=== PATIENT | female | born 1940 | race Caucasian/White ===

== ENCOUNTER 2016-10-07 09:04 | Emergency (ER) | payer MEDICARE ==
--- NOTE | 2016-10-07 09:21 | ED ---
General Adult HPI - General Chief complaint: Fall Stated complaint: trip and Fall Time Seen by Provider: 10/07/16 09:13 Source: patient, RN notes reviewed Mode of arrival: EMS Limitations: no limitations - History of Present Illness Initial comments: Patient is a 76-year-old female who presents by EMS, with chief complaint of a trip and fall that occurred just prior to arrival. She states she was walking along the sidewalk when a small piece of sidewalk was raised up caused her to trip falling down onto the left shoulder. She believes it was talked into her body. She does admit to small abrasion on her chin. Patient denies any other head injury or loss conscious. She states she's not on any blood thinners. She rates pain to the left shoulder area that is worse with any movements. Patient denies any other injuries or complaints at this time. Patient denies any recent fever, chills, shortness of breath, chest pain, back pain, abdominal pain, nausea or vomiting, numbness or tingling, dysuria or hematuria, constipation or diarrhea, headaches or visual changes, or any other complaints. - Related Data Home Medications Medication Instructions Recorded Confirmed Calcium Carbonate [Calcium] 600 mg PO DAILY 10/07/16 10/07/16 Cholecalciferol [Vitamin D3] 1,000 unit PO DAILY 10/07/16 10/07/16 Echinacea 500 mg PO DAILY 10/07/16 10/07/16 Hydrochlorothiazide [Hydrodiuril] 25 mg PO DAILY 10/07/16 10/07/16 Levothyroxine Sodium [Synthroid] 75 mcg PO DAILY 10/07/16 10/07/16 Multivitamins, Thera [Multivitamin 1 tab PO DAILY 10/07/16 10/07/16 (formulary)] [place]-3 Fatty Acids/Fish Oil [Fish 1 cap PO DAILY 10/07/16 10/07/16 Oil 1,000 mg Softgel] Potassium Chloride ER [K-Dur 10] 10 meq PO DAILY 10/07/16 10/07/16 Turmeric Root Extract [Turmeric] 500 mg PO DAILY 10/07/16 10/07/16 Previous Rx's Medication Instructions Recorded Hydrocodone/Acetaminophen [[place] 1 each PO Q6HR PRN #20 tab 10/07/16 5-325] Allergies Allergy/AdvReac Type Severity Reaction Status Date / Time No Known Allergies Allergy Verified 10/07/16 09:57 Review of Systems ROS Statement: Those systems with pertinent positive or pertinent negative responses have been documented in the HPI. ROS Other: All systems not noted in ROS Statement are negative. Past Medical History Past Medical History: Hypertension, Thyroid Disorder History of Any Multi-Drug Resistant Organisms: None Reported Additional Past Surgical History / Comment(s): carpal tunnel release Past Psychological History: No Psychological Hx Reported Smoking Status: Never smoker Past Alcohol Use History: None Reported Past Drug Use History: None Reported General Exam - General Exam Comments Initial Comments: General: The patient is awake and alert, in no distress, and does not appear acutely ill. Eye: Pupils are equal, round and reactive to light, extra-ocular movements are intact. No nystagmus. There is normal conjunctiva bilaterally. No signs of icterus. Ears, nose, mouth and throat: There are moist mucous membranes and no oral lesions. Neck: The neck is supple, there is no tenderness or JVD. Cardiovascular: There is a regular rate and rhythm. No murmur, rub or gallop is appreciated. Respiratory: Lungs are clear to auscultation, respirations are non-labored, breath sounds are equal. No wheezes, stridor, rales, or rhonchi. Musculoskeletal: Patient shows decreased range of motion to the left shoulder due to pain. No obvious deformity. Mild tenderness over the anterior aspect of the left shoulder. Sensations intact in all areas. Able to fully move left wrist left elbow no difficulties. No bony tenderness in these areas. No tenderness of cervical spine has full range of motion of this area. Tenderness over the clavicle. Strength 5/5 in all other areas other than left shoulder. Sensation intact. Pulses equal bilaterally 2+. Neurological: A&O x 3. CN II-XII intact, There are no obvious motor or sensory deficits. Coordination appears grossly intact. Speech is normal. Skin: Skin is warm and dry and no rashes or lesions are noted. Psychiatric: Cooperative, appropriate mood & affect, normal judgment. Limitations: no limitations Course Vital Signs 10/07/16 09:11 Temperature 97.4 F L Pulse Rate 60 Respiratory 18 Rate Blood Pressure 153/72 O2 Sat by Pulse 98 Oximetry Medical Decision Making - Medical Decision Making Patient's x-ray reviewed does show a fracture through the greater tubercle of the left shoulder area going through part of the joint space. Case discussed with orthopedics on-call physician client account assistant Nura Hernandez. At this time they recommended CT of the shoulder being discharged home to follow-up with orthopedics in the office with a shoulder sling. Patient will be discharged home pain medication. Advised return for any other concerns. Disposition Clinical Impression: Humerus fracture Disposition: HOME SELF-CARE Condition: Good Instructions: Arm Fracture in Adults (ED) Additional Instructions: Please use shoulder sling and follow-up with orthopedics in the next 1-2 days. Please use pain medication as prescribed. Please to the emergency room or any other concerns. Prescriptions: Hydrocodone/Acetaminophen [[place] 5-325] 1 each PO Q6HR PRN #20 tab PRN Reason: Pain Referrals: Porter Dudley DO [Primary Care Provider] - 1-2 days Reinaldo Lopez MD [STAFF PHYSICIAN] - 1-2 days Time of Disposition: 10:52
[2016-10-07] MEDS ORDERED: HYDROcodone/APAP 5-325MG 1 EACH TAB PO STA (09:39)
--- NOTE | 2016-10-07 09:57 | XR ---
Left shoulder HISTORY: Trauma and pain 3 views of the left shoulder No comparisons Displaced fracture at the greater tuberosity of the proximal left humerus is present, there is associ ated subluxation suspected as noted on one of the 3 views. Left lung apex as visualized is normal. IMPRESSION: Possible subluxation with fracture of the proximal left humerus
[2016-10-07 11:10] VITALS: BP 188/88; PULSE 69; RESP 16; TEMP 98
--- NOTE | 2016-10-07 11:17 | CT ---
EXAMINATION TYPE: CT shoulder LT wo con DATE OF EXAM: 10/07/2016 10:51 AM COMPARISON: Left shoulder same date HISTORY: Fall, Lt humerus fx CT DLP: 416 mGycm Automated exposure control for dose reduction was used. Helical imaging through the left shoulder. Th ree-dimensional reconstructions performed on an alternate workstation. FINDINGS: The comminuted proximal humeral fracture with displacement of the greater tuberosity is noted which e xtends into the metadiaphyseal location. There is no dislocation evident. Coronary artery calcifications are present. Left lung apex as visualized is normal. IMPRESSION: COMMINUTED PROXIMAL LEFT HUMERAL FRACTURE.
== END 2016-10-07 11:10 | disposition home or self-care (01) ==
LOC: EC 09:04
DX: S42.251A Displaced fracture of greater tuberosity of right humerus, initial encounter for closed fracture (principal); E07.9 Disorder of thyroid, unspecified; Z79.899 Other long term (current) drug therapy; W01.0XXA Fall on same level from slipping, tripping and stumbling without subsequent striking against object, initial encounter; Y93.01 Activity, walking, marching and hiking; Y92.480 Sidewalk as the place of occurrence of the external cause
CPT/HCPCS: 99284

== ENCOUNTER → 2016-10-09 | Outpatient (CLI) | payer MEDICARE ==
--- NOTE | 2016-10-09 12:33 | ECHOF ---
Referral Reason:N MEASUREMENTS -------- HEIGHT: 162.6 cm WEIGHT: 70.3 kg BP: 148/84 RVIDd: 2.5 cm (< 3.3) IVSd: 1.1 cm (0.6 - 1.1) LVIDd: 3.9 cm (3.9 - 5.3) LVPWd: 1.0 cm (0.6 - 1.1) IVSs: 1.6 cm LVIDs: 2.5 cm LVPWs: 1.6 cm LA Diam: 2.8 cm (2.7 - 3.8) LAESV Index (A-L): 18.94 ml/m Ao Diam: 3.3 cm (2.0 - 3.7) AV Cusp: 1.9 cm (1.5 - 2.6) MV EXCURSION: 12.842 mm (> 18.000) MV EF SLOPE: 34 mm/s (70 - 150) EPSS: 0.5 cm MV E Carmine: 0.71 m/s MV DecT: 205 ms MV A Carmine: 0.87 m/s MV E/A Ratio: 0.81 FINDINGS -------- Sinus rhythm. This was a technically adequate study. The left ventricular size is normal. There is borderline concentric left ventricular hypertrophy. Overall left ventricular systolic function is normal with, an EF between 60 - 65 %. The right ventricle is normal in size and function. Normal LA size by volume 22+/-6 ml/m2. The right atrium is normal in size. The aortic valve was not well visualized. The mitral valve leaflets are mildly thickened. Mild mitral annular calcification present. The tricuspid valve appears structurally normal. The pulmonic valve was not well visualized. The aortic root size is normal. Normal inferior vena cava with normal inspiratory collapse consistent with estimated right atrial pressure of 5 mmHg. There is no pericardial effusion. CONCLUSIONS -------- 1. Sinus rhythm. 2. The mitral valve leaflets are mildly thickened. 3. Mild mitral annular calcification present. 4. The tricuspid valve appears structurally normal. 5. The pulmonic valve was not well visualized. 6. The aortic root size is normal. 7. Normal inferior vena cava with normal inspiratory collapse consistent with estimated right atrial pressure of 5 mmHg. 8. There is no pericardial effusion. 9. This was a technically adequate study. 10. The left ventricular size is normal. 11. There is borderline concentric left ventricular hypertrophy. 12. Overall left ventricular systolic function is normal with, an EF between 60 - 65 %. 13. The right ventricle is normal in size and function. 14. Normal LA size by volume 22+/-6 ml/m2. 15. The right atrium is normal in size. 16. The aortic valve was not well visualized. TRAVELING AUDITOR: Eloisa Lemus RDCS
== END | disposition home or self-care (01) ==
LOC: RADECHMAIN 09:34
PROVIDERS: ATTEND Family Medicine
DX: Z01.810 Encounter for preprocedural cardiovascular examination (principal); I05.8 Other rheumatic mitral valve diseases
CPT/HCPCS: 93306

== ENCOUNTER 2016-10-10 13:55 | Day surgery (SDC) | payer MEDICARE ==
[~2016-10-10 13:55] MED LIST: ACETAMINOPHEN TAB 500 MG TAB PO ONE; MELOXICAM 7.5 MG TAB PO ONE; ONDANSETRON 4 MG/2 ML VIAL IVP ONE; TRANEXAMIC ACID 1,000 MG in SODIUM CHLORIDE 0.9% 100 ML IVPB ONE; ceFAZolin 2 GM in SODIUM CHLORIDE 0.9% 100 ML IVPB ONE
[2016-10-10] MEDS ORDERED: ONDANSETRON 4 MG/2 ML VIAL IVP ONE ×2 (14:18→18:04)
[2016-10-10] MEDS ORDERED: LACTATED RINGERS 1,000 ML IV ONE ×2 (14:18→17:12)
[2016-10-10] MEDS ORDERED: DEXAMETHASONE SOD PHOSPHATE 10 MG/ML 1 ML VIAL IV ONE (14:19)
[2016-10-10] MEDS ORDERED: MIDAZOLAM 2 MG/2 ML VIAL IVP ONE (15:11)
[2016-10-10] MEDS ORDERED: ePHEDrine 50 MG/ML 1 ML AMP ONE (15:25)
[2016-10-10] MEDS ORDERED: SUCCINYLCHOLINE CHLORIDE 100 MG/5 ML SYR IV ONE (15:25)
[2016-10-10] MEDS ORDERED: HYDROmorphone (PF) 1 MG/ML ONE (15:25)
[2016-10-10] MEDS ORDERED: GLYCOPYRROLATE 0.2 MG/ML 2 ML VIAL ONE (15:25)
[2016-10-10] MEDS ORDERED: NEOSTIGMINE 1 MG/ML 10 ML VIAL ONE (15:25)
[2016-10-10] MEDS ORDERED: fentaNYL (PF) 50 MCG/ML 2 ML AMP ONE (15:25)
[2016-10-10] MEDS ORDERED: PROPOFOL 10 MG/ML 20 ML VIAL IV ONE (15:25)
[2016-10-10] MEDS ORDERED: LIDOCAINE 1% INJ 10MG/ML (20 ML MDV) ONE (15:25)
[2016-10-10] MEDS ORDERED: ROCURONIUM BROMIDE 10 MG/ML 10 ML VIAL IV ONE (15:25)
[2016-10-10] MEDS ORDERED: PROCHLORPERAZINE SUPPOSITORY 25 MG SUPP RECTAL PRN (15:52)
[2016-10-10] MEDS ORDERED: METOCLOPRAMIDE 5 MG/ML 2 ML VIAL IVP PRN (15:52)
[2016-10-10] MEDS ORDERED: hydrOXYzine PAMOATE 25 MG CAP PO PRN (15:52)
[2016-10-10] MEDS ORDERED: SENNOSIDES-DOCUSATE SODIUM 1 EACH TAB PO PRN (15:52)
[2016-10-10] MEDS ORDERED: ONDANSETRON 4 MG/2 ML VIAL IVP PRN (15:52)
[2016-10-10] MEDS ORDERED: diphenhydrAMINE 25 MG CAP PO PRN (15:52)
[2016-10-10] MEDS ORDERED: TEMAZEPAM 15 MG CAP PO PRN (15:52)
[2016-10-10] MEDS ORDERED: HYDROmorphone 1 MG/ML 1 ML SYRINGE IVP PRN ×3 (15:52)
[2016-10-10] MEDS ORDERED: HYDROcodone/APAP 5-325MG 1 EACH TAB PO PRN ×2 (15:52)
[2016-10-10] MEDS: ceFAZolin 2 GM in SODIUM CHLORIDE 0.9% 100 ML IVPB SCH ×2 (16:03→23:57)
[2016-10-10 18:20] VITALS: RESP 16
--- NOTE | 2016-10-10 18:25 | XR ---
EXAMINATION TYPE: XR shoulder limited LT DATE OF EXAM: 10/10/2016 5:58 PM COMPARISON: 10/07/2016 HISTORY: Fracture TECHNIQUE: Single view FINDINGS: There is a plate with screws fixing the humeral neck fracture in reasonable anatomic positi on. There is no dislocation. IMPRESSION: Satisfactory fixation. I see no complicating process.
--- NOTE | 2016-10-10 18:45 | P.ONQ ---
Anesthesiology Proc Note - PNB - Peripheral Nerve Block Performed Left Infraclavicular Single Time Out Performed: Yes Indication: Acute Post-Operative Pain, Requested by physician Sedation Type: Awake Preparation: Sterile Prep Position: Supine Needle Size: 50mm (2") Needle Gauge: 21 Technique: Ultrasound Injectate: 0.5% Ropivacaine (see comment for volume) (ropi .5% 20cc) Blood Aspirated: No Pain Paresthesia on Injection Noted: No Resistance on Injection: Normal Events: Uneventful and Well Tolerated
[2016-10-10 19:58] VITALS: BMI 3853.4
[2016-10-10] MEDS: DOXYCYCLINE 50 MG CAP PO SCH (23:57)
[2016-10-11] MEDS: LACTATED RINGERS 1,000 ML IV SCH ×2 (07:15→13:24)
[2016-10-11 07:19] VITALS: BP 178/85; PULSE 97; TEMP 98.1
[2016-10-11 07:39] LABS: Basophils % (A) 0 %; CHCM 35.6; Eosinophils # (A) 0.1 k/uL (0-0.7); Eosinophils % (A) 0 %; HCT 33.3 % (34.0-46.0); HDW 2.49; HGB 11.8 gm/dL (11.4-16.0); Luc % (Auto) 2; Lymphocytes # (A) 1.8 k/uL (1.0-4.8); Lymphocytes % (A) 16 %; MCH 30.1 pg (25.0-35.0); MCHC 35.5 g/dL (31.0-37.0); MCV 84.7 fL (80.0-100.0); Mean Platelet Volume 9.1; Monocytes # (A) 0.7 k/uL (0-1.0); Monocytes % (A) 6 %; Neutrophils # (A) 8.1 k/uL (1.3-7.7); Neutrophils % (A) 75 %; RBC 3.93 m/uL (3.80-5.40); RDW 13.2 % (11.5-15.5); WBC 10.8 k/uL (3.8-10.6); WBC (Perox) 10.89
--- NOTE | 2016-10-11 08:24 | XR ---
FLUOROSCOPY 34 seconds of fluoroscopy time were utilized during internal fixation of the left shoulder. 2 images document the procedure.
--- NOTE | 2016-10-11 08:57 | OP ---
DATE OF SERVICE: 10/10/2016 SURGEON: CARLOS ENRIQUE ELAINE MD BOOKKEEPING MANAGER: Nura Hernandez PA-C PREOPERATIVE DIAGNOSIS: Left displaced three-part proximal humerus fracture. POSTOPERATIVE DIAGNOSIS: Left displaced three-part proximal humerus fracture. OPERATION: Open reduction internal fixation left proximal humerus fracture. ANESTHESIA: General endotracheal. ESTIMATED BLOOD LOSS: 250 mL. SPECIMENS REMOVED: COMPLICATIONS: DRAINS: None. DISPOSITION: Postanesthesia care unit. OPERATIVE FINDINGS: INDICATIONS: Diamond is a very pleasant female who fell and injured her shoulder on the morning of 10/07/2016. She presented to the emergency department. Work-up including x-rays and CT scan revealed a displaced three-part proximal humerus fracture. She was given a sling and she had follow-up in my office. I saw her on Friday10/08/2016 in the office. She is a very active lady. She is left-hand dominant. She is a very healthy. This is her first fracture. She did have a displaced three-part proximal humerus fracture. Recommendation was for open reduction internal fixation of her left proximal humerus fracture. The risks of the procedure were discussed with her and her daughter in detail. These risks include, but are not limited to risk of infection, nerve damage, bleeding, pain, and a small risk of deep vein thrombosis, which could lead to fatal pulmonary embolism. There is also a risk of deep infection as well as a potential avascular necrosis of the humeral head. All of her questions and her daughter's questions were answered to her satisfaction. Appropriate informed consent was obtained. DESCRIPTION OF THE PROCEDURE: The patient was identified in the preoperative holding area. Surgical site was marked by both the patient and myself. She was given 2 grams of Ancef IV for prophylactic purposes. She was then transferred to the operative suite where she was placed supine on the operating room table. General anesthetic was then administered and dosed by the anesthesia department without apparent complication. She was then placed into the beach chair position, well padded in preparation for surgery. Great care was taken to ensure that her so that her cervical spine was in neutral alignment, well-padded and maintained that way throughout the operative procedure. Great care was also taken to ensure that her legs were appropriately padded as well. Her left upper extremity was then prepped and draped usual sterile fashion. Standard surgical pause was then undertaken to ensure that we were operating on the correct site and that appropriate preoperative antibiotics had been given. All staff in the room were in agreement and we proceeded. The acromion, AC joint, clavicle, and coracoid were marked with a surgical pen. A planned incision starting at the level of clavicle and extending distally over the deltopectoral interval approximately 1 cm lateral to the coracoid was marked with a surgical pen. Incision was then made with 10 blade scalpel. Dissection was carried down sharply to the overlying fat to the deltoid fascia. The deltopectoral interval was identified at the level of clavicle. A small band retractor was then placed onto the proximal deltoid. I then released the deltoid fascia on the lateral aspect of the cephalic vein. The vein was then left in its bed medially. The cephalic vein was protected throughout the entire case. Significant fracture hematoma was encountered. This was evacuated. She had hemorrhagic subdeltoid bursa which is also debrided. She had valgus impacted humeral head fragment as well as a significantly displaced large greater tuberosity fragment. I then was able to utilize a Sandy to grab the greater tuberosity fragment bring it anteriorly. I was then able to place 2 separate 0 Vicryl stay sutures within the posterior rotator cuff. This gave me good control over the greater tuberosity fragment. I then utilized a bone tamp to tamp the humeral head out of valgus and back into appropriate amount of alignment. I was then able to talk to the greater tuberosity and reduce it as anatomically as possible. There was some comminution around the proximal aspect of the greater tuberosity fragment. I was able to vicente the cortex anteriorly and distally, however. I then provisionally pinned the reduction and brought the C-arm fluoroscopy in. The head had been reduced out of valgus into a more appropriate alignment. The greater tuberosity had been reduced. I then had the ambulatory services representative open a Synthes 3.5 mm left proximal humeral locking plate. This was then placed onto the shaft just posterior to the bicipital groove. I then provisionally pinned the proximal aspect. Again, fluoroscopy was utilized to ensure proper placement of the plate. I then placed a 3.5 mm bicortical nonlocking screw through one of the distal oblong holes. This compressed the plate very nicely to the shaft of the humerus. It also reduced the greater tuberosity fragment and compressed that to the head. Fluoroscopy again was brought in to ensure the plate was placed appropriately as well as the reduction was maintained and it was. I then proceeded to fill the proximal locking holes of the plate. At least three 3.5 mm locking screws were placed through the greater tuberosity fragment. I then placed a couple anteriorly as well. The calcar had been reduced near anatomically. The calcar screw was also placed. I then placed a distal 3.5 mm bicortical nonlocking screw through the most distal oblong hole plate. Fluoroscopy was utilized throughout to ensure proper length and placement of the screws. All the screws were contained within the humeral head and within the shaft of the humerus. At this point, I proceeded to tie the stay sutures in the posterior rotator cuff and secure them to the plate. This provided a parachute-type technique for additional fixation. At this point in time, no further work was deemed necessary. Final fluoroscopic images were taken. The fracture had been reduced fairly nicely. All the screws were of appropriate length. None of the screws impinged into the articular surface. They were all contained within the humeral head and within the proximal humerus. At this point in time, no further work was deemed necessary. The wound was thoroughly irrigated with sterile saline solution with antibiotic added. The deltopectoral interval was loosely closed with 0 Vicryl suture. Subcutaneous tissue closed with 2-0 Vicryl interrupted suture. The skin was closed with 3-0 Monocryl suture. Dermabond was applied to the incision. Sterile compressive dressing was then applied and the patient's left upper extremity was placed into a standard sling. All sponge and needle counts were deemed correct prior to closure. The patient tolerated the procedure without apparent complication. She was transferred to recovery room in stable condition.
[2016-10-11] MEDS ORDERED: ACETAMINOPHEN TAB 325 MG TAB PO PRN ×2 (08:58→09:01)
[2016-10-11] MEDS: ceFAZolin 2 GM in SODIUM CHLORIDE 0.9% 100 ML IVPB SCH (09:02)
[2016-10-11] MEDS: DOXYCYCLINE 50 MG CAP PO SCH (09:03)
--- NOTE | 2016-10-11 11:17 | P.DS ---
Providers Date of admission: 10/10/2016 Expected date of discharge: 10/11/16 Attending physician: Reinaldo Lopez Consults: 10/10/16 15:52 Consult Physician Routine Consulting Provider: Akin Ariza Consult Reason/Comments: post op medical management Do you want consulting provider notified?: Yes Primary care physician: [facility] Course: Patient was admitted the OR 10/10/2016 to undergo ORIF of left proximal humerus fracture. She underwent the above procedure which she tolerated well without complication. Her postoperative hospital course has remained without complication. On day of discharge she desires discharge to home. Her pain is controlled with oral pain medication, she has no new complaints, tolerating by mouth meds and diet, voiding without difficulty, passing flatus, vital signs stable, wound is benign, labs within acceptable ranges, neurovascular status intact to left upper extremity, abdomen is soft and nontender, calf is soft and nontender, denies abdominal pain, denies calf pain. Review of systems negative for fever, chills, chest pain, shortness breath, nausea S, tingling, weakness, headaches, dizziness, slurred speech or other. Procedures: ORIF left proximal humerus fracture Patient Condition at Discharge: Good Plan - Discharge Summary New Discharge Prescriptions: Doxycycline Hyclate 100 mg PO BID #10 tab Discharge Medication List Cholecalciferol [Vitamin D3] 1,000 unit PO DAILY 10/07/16 [History] Echinacea 500 mg PO DAILY 10/07/16 [History] Hydrochlorothiazide [Hydrodiuril] 25 mg PO DAILY 10/07/16 [History] Levothyroxine Sodium [Synthroid] 75 mcg PO DAILY 10/07/16 [History] Multivitamins, Thera [Multivitamin (formulary)] 1 tab PO DAILY 10/07/16 [History ] [place]-3 Fatty Acids/Fish Oil [Fish Oil 1,000 mg Softgel] 1 cap PO DAILY [History] Potassium Chloride ER [K-Dur 10] 10 meq PO DAILY 10/07/16 [History] Turmeric Root Extract [Turmeric] 500 mg PO DAILY 10/07/16 [History] Acetaminophen Tab [Tylenol Tab] 650 mg PO Q4-6H PRN 10/09/16 [History] Ascorbic Acid [Vitamin C] 500 mg PO DAILY 10/09/16 [History] Calcium Carbonate/Vitamin D3 [Caltrate 600 Plus D3 Tablet] 2 each PO DAILY 10/09 [History] Naproxen Sodium [Aleve] 220 mg PO DAILY PRN 10/09/16 [History] Doxycycline Hyclate 100 mg PO BID #10 tab 10/11/16 [Rx] Follow up Appointment(s)/Referral(s): Reinaldo Lopez MD [STAFF PHYSICIAN] - 10 Days Activity/Diet/Wound Care/Special Instructions: Keep wound clean and dry Maintain sling Nonweightbearing left upper extremity Follow up with Dr. Lopez in office, [phone] Take meds as directed Discharge Disposition: HOME SELF-CARE
[2016-10-11] MEDS ORDERED: LACTULOSE 20 GM/30 ML CUP PO ONE (13:30)
--- NOTE | 2016-10-11 18:18 | CONS ---
DATE OF CONSULTATION: 10/11/2016. REASON FOR CONSULTATION: Medical management requested by Dr. Lopez. CONSULTATION: This is a very pleasant 76-year-old patient who had taken a fall recently with a fracture of the left humerus. Patient has undergone ORIF of the same. Post procedure left arm in a sling, dressing of the left shoulder. Sitting up in bed. Patient's chronic stable medical conditions include hypertension, arthritis, especially in the knees, hypothyroid, urinary incontinence. Patient states she does trouble taking pain medications and she gets nausea. Denies any cardiac history. REVIEW OF SYSTEMS: CONSTITUTIONAL: None. HEENT: None. RESPIRATORY: None. CARDIOVASCULAR: None. GASTROINTESTINAL: None. GENITOURINARY: None. MUSCULOSKELETAL: Pain in the left shoulder and knees, hips. Dermatological: None. HEMATOLOGIC: None. LYMPHATICS: None. PSYCHIATRY: None. NEUROLOGICAL: None. Past medical history of hypertension, osteoarthritis, especially in knees, hypothyroid, urinary incontinence. PAST SURGICAL HISTORY: Carpal tunnel release x1. SOCIAL HISTORY: Lives with her daughter. She drinks alcoholic occasionally. She does not smoke. FAMILY HISTORY: Lung cancer. Home medications: 1. ( ) 5 mg p.o. daily. 2. Potassium 10 mEq a day. 3. Fish oil 1 capsule p.o. daily. 4. Aleve 220 mg daily p.r.n. 5. Multivitamin 1 tablet p.o. daily. 6. Synthroid 75 mcg p.o. daily. 7. Hydrochlorothiazide 25 mg p.o. daily. 8. Echinacea 500 mg p.o. daily. 9. Vitamin D3, 3000 units p.o. daily. 10. Caltrate 600 with D3 two tablets p.o. daily. 11. Vitamin C 500 mg p.o. daily. 12. Tylenol 650 mg q.4 p.r.n. ALLERGIES: HYDROCODONE. On examination, temperature 98.1, pulse 97, respirations 16, blood pressure 170/85, previously 132/74, pulse ox 95% on room air. GENERAL APPEARANCE: Average build, sitting up, not in distress. EYES: Pupils equal. Conjunctivae normal. HEENT: Oral cavity normal. NECK: JVD not raised. Mass not palpable. RESPIRATORY: Effort normal. LUNGS: Fair air entry. CARDIOVASCULAR: First and second sounds normal. No edema. ABDOMEN: Soft, nontender. Liver and spleen not palpable. LYMPHATIC: No lymph nodes in the neck or axillae. PSYCHIATRY: Alert and oriented x3. Mood and affect normal. EXTREMITIES: Dressing over the left humerus, left arm ( ). PSYCHIATRY: Alert and oriented x3. Mood and affect normal. MUSCULOSKELETAL: Evidence of osteoarthritis in multiple including the hands, knees. INVESTIGATIONS: White count 10.8, hemoglobin 11.8. ASSESSMENT: 1. Left humerus fracture followed by ORIF. 2. Essential hypertension. 3. Primary osteoarthritis of multiple joints, including the knees and hands. 4. Hypothyroidism. 5. Chronic urinary stress incontinence. PLAN: Patient's home medications are to be continued. Patient has got Venodyne boots for DVT prophylaxis. Care was discussed with the patient. If discharged, should follow up with Dr. Dudley. Thank you Dr. Lopez. Copy to Dr. Dudley.
== END 2016-10-11 15:10 | disposition home or self-care (01) ==
LOC: OR 13:55 → EDSTATUS 16:15 → 3SUR 17:47 → OR 10-11 15:10
PROVIDERS: ATTEND Orthopaedic Surgery Sports Medicine
DX: S42.202A Unspecified fracture of upper end of left humerus, initial encounter for closed fracture (principal); S42.252A Displaced fracture of greater tuberosity of left humerus, initial encounter for closed fracture; W01.0XXA Fall on same level from slipping, tripping and stumbling without subsequent striking against object, initial encounter; I10 Essential (primary) hypertension; E03.9 Hypothyroidism, unspecified; E78.5 Hyperlipidemia, unspecified; N39.3 Stress incontinence (female) (male); M17.0 Bilateral primary osteoarthritis of knee; M19.042 Primary osteoarthritis, left hand; M19.041 Primary osteoarthritis, right hand; Z79.1 Long term (current) use of non-steroidal anti-inflammatories (NSAID); Z79.899 Other long term (current) drug therapy; Z79.891 Long term (current) use of opiate analgesic; Z88.5 Allergy status to narcotic agent
CPT/HCPCS: 64415; 85025; 73020; 23615; C1713; J2250; J1100; J2710; J0690 ×2; J2405; J2001; J3010; J1170; J0330; J2704

== ENCOUNTER → 2019-03-16 | Outpatient (CLI) | payer MEDICARE ==
--- NOTE | 2019-03-16 16:01 | US ---
EXAMINATION TYPE: US carotid duplex BILAT DATE OF EXAM: 03/16/2019 COMPARISON: NONE CLINICAL HISTORY: G45.9 TIA. Patient states having left hand finger numbness and a little numbness on the left side of face EXAM MEASUREMENTS: RIGHT: Peak Systolic Velocity (PSV) cm/sec ----- Right CCA: 65.1 ----- Right ICA: 100.1 ----- Right ECA: 80.2 ICA/CCA ratio: 1.5 RIGHT: End Diastole cm/sec ----- Right CCA: 15.4 ----- Right ICA: 25.7 ----- Right ECA: 7.6 LEFT: Peak Systolic Velocity (PSV) cm/sec ----- Left CCA: 83.3 ----- Left ICA: 78.1 ----- Left ECA: 84.7 ICA/CCA ratio: 0.9 LEFT: End Diastole cm/sec ----- Left CCA: 18.3 ----- Left ICA: 21.9 ----- Left ECA: 8.7 VERTEBRALS (direction of flow): Right Vertebral: Antegrade Left Vertebral: Antegrade Rhythm: Normal No elevated velocities or significant stenosis. Bilateral wall thickening. Plaque visualized in rig ht CCA wall and bilateral bulbs. IMPRESSION: Mild degree of grayscale atheromatous plaquing with no sonographically evident hemodynam ically significant stenosis within either visualized carotid arterial system. Criteria for Assigning % of Stenosis / Diameter reduction (Estimation based on the indirect measurements of the internal carotid artery velocities (ICA PSV). 1. Normal (no stenosis)=ICA PSV < 125 cm/s: ratio < 2.0: ICA EDV<40 cm/s. 2. Less than 50% stenosis=ICA PSV < 125 cm/s: ratio < 2.0: ICA EDV<40 cm/s. 3. 50 to 69% stenosis=ICA PSV of 125 to 230 cm/s: ration 2.0 ? 4.0: ICA EDV 40-100 cm/s. 4. Greater than 70% stenosis to near occlusion= ICA PSV > 230 cm/s: ratio > 4.0: ICA EDV > 100 cm/s. 5. Near occlusion= ICA PSV velocities may be low or undetectable: variable ratio and ICA EDV. 6. Total occlusion=unable to detect flow.
== END | disposition home or self-care (01) ==
LOC: RADUSWWP 14:56
PROVIDERS: ATTEND Family Medicine
DX: I67.2 Cerebral atherosclerosis (principal)
CPT/HCPCS: 93880

== ENCOUNTER → 2019-11-05 | Outpatient (CLI) | payer MEDICARE ==
[2019-11-05 09:46] LABS: HCT 40.5 % (34.0-46.0); HGB 12.9 gm/dL (11.4-16.0); MCH 29.1 pg (25.0-35.0); MCHC 31.8 g/dL (31.0-37.0); MCV 91.4 fL (80.0-100.0); Mean Platelet Volume 10.1; Platelet Count 203 k/uL (150-450); RBC 4.43 m/uL (3.80-5.40); RDW 13.5 % (11.5-15.5); WBC 6.3 k/uL (3.8-10.6)
[2019-11-05 09:54] LABS: Partial Thromboplastin Time 22.6 sec (22.0-30.0); Prothrombin Time 10.3 sec (9.0-12.0)
[2019-11-05 09:55] LABS: Appearance,Urine Clear (Clear); Bilirubin,Urine Negative (Negative); Blood,Urine Negative (Negative); Color,Urine Yellow; Glucose,Urine (UA) Negative (Negative); Ketones,Urine Negative (Negative); Leukocyte Esterase,Urine Trace (Negative); Mucus,Urine Moderate /hpf; Nitrite,Urine Negative (Negative); Protein,Urine Negative (Negative); RBC,Urine 2 /hpf (0-5); Squamous Epithelial Cell,Urine 1 /hpf (0-4); Urobilinogen,Urine <2.0 mg/dL (<2.0); WBC,Urine 1 /hpf (0-5)
[2019-11-05 10:01] LABS: ALT 20 U/L (4-34); AST 23 U/L (14-36); African American GFR (CKD) >90 (>60 ml/min/1.73 sqM); Albumin 4.6 g/dL (3.5-5.0); Alkaline Phosphatase 60 U/L (38-126); Anion Gap 9 mmol/L; Blood Urea Nitrogen 24 mg/dL (7-17); Calcium 9.6 mg/dL (8.4-10.2); Carbon Dioxide 26 mmol/L (22-30); Chloride 106 mmol/L (98-107); Glucose 92 mg/dL (74-99); Non-African American GFR(CKD) 88 (>60 ml/min/1.73 sqM); Sodium 141 mmol/L (137-145); Total Bilirubin 0.7 mg/dL (0.2-1.3); Total Protein 7.2 g/dL (6.3-8.2)
== END | disposition home or self-care (01) ==
LOC: LABPAT 08:40
PROVIDERS: ATTEND Orthopaedic Surgery
DX: Z01.818 Encounter for other preprocedural examination (principal); Z79.01 Long term (current) use of anticoagulants; Z01.812 Encounter for preprocedural laboratory examination; U07.1 COVID-19
CPT/HCPCS: 80053; 85027; 85610; 85730; 81001; 87070; 36415; U0003

== ENCOUNTER → 2019-12-09 | Outpatient (CLI) | payer MEDICARE ==
[2019-12-09 10:03] LABS: HCT 40.3 % (34.0-46.0); HGB 13.1 gm/dL (11.4-16.0); MCH 29.8 pg (25.0-35.0); MCHC 32.6 g/dL (31.0-37.0); MCV 91.3 fL (80.0-100.0); Mean Platelet Volume 10.9; Platelet Count 210 k/uL (150-450); RBC 4.41 m/uL (3.80-5.40); WBC 5.9 k/uL (3.8-10.6)
[2019-12-09 10:06] LABS: ALT 19 U/L (4-34); AST 22 U/L (14-36); African American GFR (CKD) >90 (>60 ml/min/1.73 sqM); Albumin 4.6 g/dL (3.5-5.0); Alkaline Phosphatase 65 U/L (38-126); Anion Gap 8 mmol/L; Blood Urea Nitrogen 15 mg/dL (7-17); Calcium 9.6 mg/dL (8.4-10.2); Carbon Dioxide 27 mmol/L (22-30); Chloride 105 mmol/L (98-107); Glucose 91 mg/dL (74-99); Non-African American GFR(CKD) 88 (>60 ml/min/1.73 sqM); Potassium 4.1 mmol/L (3.5-5.1); Sodium 140 mmol/L (137-145); Total Bilirubin 0.6 mg/dL (0.2-1.3)
[2019-12-09 10:08] LABS: Partial Thromboplastin Time 22.7 sec (22.0-30.0); Prothrombin Time 10.2 sec (9.0-12.0)
[2019-12-09 10:37] LABS: Appearance,Urine Clear (Clear); Bacteria,Urine Rare /hpf; Bilirubin,Urine Negative (Negative); Blood,Urine Negative (Negative); Color,Urine Yellow; Glucose,Urine (UA) Negative (Negative); Hyaline Casts,Urine 7 /lpf (0-2); Ketones,Urine Negative (Negative); Leukocyte Esterase,Urine Large (Negative); Mucus,Urine Many /hpf; Nitrite,Urine Negative (Negative); PH, Urine 6.5 (5.0-8.0); Protein,Urine Trace (Negative); RBC,Urine 3 /hpf (0-5); Specific Gravity,Urine 1.018 (1.001-1.035); Squamous Epithelial Cell,Urine 3 /hpf (0-4); Urobilinogen,Urine <2.0 mg/dL (<2.0); WBC,Urine 25 /hpf (0-5)
== END | disposition home or self-care (01) ==
LOC: LABPAT 08:28
PROVIDERS: ATTEND Orthopaedic Surgery
DX: Z01.818 Encounter for other preprocedural examination (principal)
CPT/HCPCS: 36415; 80053; 81001; 85027; 85610; 85730

== ENCOUNTER 2019-12-20 10:58 | Day surgery (SDC) | payer MEDICARE ==
[2019-12-16 13:26] VITALS: BMI 24.0
[~2019-12-20 10:58] MED LIST changes: +DEXAMETHASONE SOD PHOSPHATE 10 MG/ML 1 ML VIAL IV ONE; +GABAPENTIN 300 MG CAP PO ONE; +HYDROcodone/APAP 5-325MG 1 EACH TAB PO PRN; +HYDROmorphone 0.5 MG/0.5 ML SYRINGE IVP PRN; +LIDOCAINE 1% (10MG/ML) FOR IV START INTRADERMA PRN; +MAGNESIUM HYDROXIDE 2,400 MG/10 ML CUP PO PRN; +MIDAZOLAM 2 MG/2 ML VIAL IV PRN; +NA PHOS,M-B/NA PHOS,DI-BA 133 ML ENEMA RECTAL PRN; +NALOXONE 0.4 MG/ML 1 ML VIAL IV PRN; +ONDANSETRON 4 MG/2 ML VIAL IVP PRN; +ROPIVACAINE 246.25 MG, EPINEPHrine 0.5 MG, KETOROLAC 30 MG, cloNIDine HCL/PF 80 MCG, WA... MISCELLANE ONE; +bisacodyL 10 MG SUPP RECTAL PRN; -ceFAZolin 2 GM in SODIUM CHLORIDE 0.9% 100 ML IVPB ONE; +fentaNYL (PF) 50 MCG/ML 2 ML AMP IVP PRN; +traMADol 50 MG TAB PO PRN
[2019-12-20] MEDS ORDERED: ONDANSETRON 4 MG/2 ML VIAL ONE (11:39)
[2019-12-20] MEDS ORDERED: ACETAMINOPHEN TAB 500 MG TAB ONE (11:39)
[2019-12-20] MEDS: LACTATED RINGERS 1,000 ML IV SCH (11:42)
[2019-12-20] MEDS ORDERED: MIDAZOLAM 2 MG/2 ML VIAL IVP ONE (12:07)
[2019-12-20] MEDS ORDERED: fentaNYL (PF) 50 MCG/ML 2 ML AMP IVP ONE (12:08)
[2019-12-20] MEDS ORDERED: ROPIVACAINE 0.2%-NS ON-Q PUMP 1,090 MG, EMPTY PAIN BALL 1 EACH MISCELLANE PRN (12:28)
--- NOTE | 2019-12-20 12:28 | P.ANPRN ---
Procedure Note - Anesthesia - Nerve Block Performed Right Adductor Canal Infusion Time Out Performed: Yes Date of Procedure: 12/20/19 Procedure Start Time: 12:06 Procedure Stop Time: 12:15 Location of Patient: PreOp Indication: Requested by Surgeon Specifically requested for management of pain by DrEric: Karl Roca Sedation Type: Sedate with meaningful contact maintained Preparation: Sterile Prep, Sterile Dressing Position: Supine Needle Types: Pajunk Needle Gauge: 18 Ultrasound used to visualize needle placement: Yes Ultrasound used to observe medication spread: Yes Injectate: 0.5% Ropivacaine (see comment for volume) (20 ml) Blood Aspirated: No Pain Paresthesia on Injection Noted: No Resistance on Injection: Normal Image Stored and Saved: Yes Events: Uneventful and Well Tolerated
[2019-12-20] MEDS ORDERED: LIDOCAINE 1% INJ 10MG/ML (20 ML MDV) ONE (13:13)
[2019-12-20] MEDS ORDERED: fentaNYL (PF) 50 MCG/ML 2 ML AMP ONE (13:13)
[2019-12-20] MEDS ORDERED: MIDAZOLAM 2 MG/2 ML VIAL ONE (13:13)
[2019-12-20] MEDS ORDERED: PROPOFOL 10 MG/ML 20 ML VIAL IV ONE (13:13)
[2019-12-20] MEDS ORDERED: ceFAZolin 1,000 MG VIAL IVPB ONE (13:40)
--- NOTE | 2019-12-20 14:57 | P.OP ---
Date of Procedure: 12/20/19 Preoperative Diagnosis: Severe osteoarthritis right knee Postoperative Diagnosis: Severe osteoarthritis right knee Procedure(s) Performed: Right total knee arthroplasty utilizing [employer] patient specific guides Implants: Hester and Nephew Cruciate Retaining Journey II CR Oxinium Femoral Component size 5, right Hester & Nephew Journey Nonporous Tibial Baseplate size 4, right Hester & Nephew Journey II CR, XLPE Articular Insert, 9 mm, size 3-4 Hester & Nephew Eve II Resurfacing Patellar Component, Oval, 29 mm All components were cemented using Palacose R bone cement. The articulation is Oxinium on polyethylene. Visionaire patient specific guides The articulation is Oxinium on polyethylene. Anesthesia: spinal Surgeon: Karl Roca Epic [place] Specialist #1: Gisselle Oconnor Estimated Blood Loss (ml): 25 Pathology: other (Bone and cartilage) Condition: stable Disposition: PACU Indications for Procedure: After failure of conservative treatment we discussed the surgical and nonsurgical treatment options at length. Patient wishes to proceed with a total knee arthroplasty. Complications specific to this procedure were discussed at length, including but not limited to infection, bleeding, stiffness, and nerve injury. Covid-19 was also discussed at length with the patient, and they are aware of the current policies and procedures. The patient was given the option of delaying surgery, but they elect to proceed knowing these risks. Patient is aware of all these complications and informed consent was obtained Operative Findings: The operative findings are consistent with severe osteoarthritis of the right knee Description of Procedure: Patient was seen in the preoperative area consent was reviewed and operative site was marked with a skin marker. An adductor canal pain catheter was placed by anesthesia in the preoperative area. Patient was then brought to the operating room and given preoperative antibiotics intravenously. A spinal anesth etic was administered by the anesthesia department. A tourniquet was placed on the upper thigh and the lower extremity was prepped and draped in usual sterile fashion. A gram of transexamic acid was given. A universal timeout was then performed which confirmed the patient's name, surgical site, ALLERGIES, and consent. The lower extremity was then exsanguinated and tourniquet was inflated to 250 mmHg. A standard and anterior midline approach to the knee was performed. The skin and subcutaneous tissue was dissected down to the patellar tendon. A medial parapatellar arthrotomy was then performed. The knee was then extended, the patellar was everted, and the knee was again flexed. Anterior horns of both menisci were excised, and a release was performed to the posterior medial aspect of the knee. On gross visual inspection, there was complete loss of articular cartilage in the medial and patellofemoral joint spaces. There was also significant cartilage damage in the lateral compartment. There were multiple periarticular osteophytes. The patient specific guide was placed on the distal femur, and pinned in place. Using the patient specific guide, the distal femoral cut was performed. The cutting block was then removed and the cut was checked for flatness. The appropriate 5-in-1 cutting block was then pinned in place through the holes that were drilled through the patient specific guide. The anterior condyles were cut without notching. The posterior and chamfer cuts were performed while protecting the collateral ligaments. The cutting block was then removed. Attention was then directed to the tibia. The remaining ACL was removed with a Ronguer, and the tibia was then gently subluxed forward with a large bent knee retractor. Any remaining menisci was excised. The posterior lateral corner was cauterized in order to cauterize the lateral geniculate artery. The patient specific guide for the tibia was then placed and was held in place with pins. Pinholes were then placed for rotation of the tibial component as well. Proximal tibia was then cut and sized. Next trials were then placed with the appropriate-sized insert. The knee was able to fully extend and flex to 130 and was stable throughout all range of motion. The knee was then extended, patella everted. Patella was then measured, and then using an osteotomy guide, the patella was cut at the appropriate level. The patella was then measured and drilled and the patella trial was then placed. The knee was then taken through range of motion with the patella trial and the patella tracked normally. The knee was then extended patella trial was then removed and the patella was everted. Knee was then flexed and lug holes were drilled through the femoral trial and the femoral trial was then removed. The tibial was then exposed, and the tibial broach guide was then pinned in place after it was set for the appropriate rotation to allow for the most coverage without overhang. The tibia was then reamed and broached. The cut surfaces of bone were then irrigated with pulsatile lavage. The posterior structures were injected with the ropivacaine solution. The knee was also irrigated with Irrisept solution. The components were then opened, the cement was mixed, and the components were then cemented in place. The cement was allowed to harden with the knee in full extension. While the cement was hardening, the remaining soft tissues were then injected with a ropivacaine solution, which consisted of 246.25 mg of ropivacaine, 0.5 mg of epinephrine, 30 mg of Toradol, 80 g of clonidine, and 48.45 mL of sterile water, for a total of 100 mL of fluid injected. After the cemented hardened. The tourniquet was released, and hemostasis was obtained. A second gram of transexamic acid was given. The knee was again irrigated. The knee was again taken through range of motion and found to be stable throughout all range of motion of 0-130, and the patella tracked normally. The fascia was then closed with #2 strata fix suture. The subcutaneous tissue was closed with 3-0 Vicryl and 3-0 strata fix. Dermabond glue was used for the skin and placed with the knee in flexion. The patient was placed in a sterile silver dressing. Patient was then transferred to recovery room in stable condition. The assistant director of public works ROGELIO Garza was required due the complexity surgery and the need for a skilled surgical instrument maker. She assisted in positioning, draping, retraction, and closure of the wound.
--- NOTE | 2019-12-20 15:36 | XR ---
Right knee HISTORY: Postop right knee arthroplasty 2 views of the right knee Bone mineralization is reduced. Patient is status post right knee arthroplasty. There is anatomic ali gnment. Lucency is present in the soft tissues. IMPRESSION: Orthopedic follow-up.
[2019-12-20] MEDS: SODIUM CHLORIDE 0.9% 1,000 ML IV SCH (16:47)
[2019-12-20 19:39] VITALS: RESP 18
[2019-12-20] MEDS: ASPIRIN 325 MG TAB PO SCH (20:29)
[2019-12-20] MEDS ORDERED: SENNOSIDES-DOCUSATE SODIUM 1 EACH TAB PO SCH (21:00)
--- NOTE | 2019-12-21 00:17 | P.CONS ---
History of Present Illness - Reason for Consult Consult date: 12/20/19 Medical management of hypertension And other medical problems - Chief Complaint Right knee total arthroplasty. - History of Present Illness Patient is a 79-year-old female with a known history of hypertension, hypothyroidism, osteoarthritis and history of TIA about 4 months ago with no residual defects was admitted to hospital for elective right total knee arthroplasty. Patient tolerated procedure very well. Currently denies any complaints of chest pain or shortness of breath. No nausea vomiting abdominal pain or diarrhea. No headache or dizziness or lightheadedness. No fever no chills. Review of Systems Constitutional: Patient denies any fever or chills . No generalized weakness or weight loss. Abdomen: Patient denied nausea vomiting and diarrhea and abdominal pain. Cardiovascular: Patient denies any chest pain or short of breath no palpitations. Respiratory: patient denied any cough is from production. No shortness of breath Neurologic: Patient denied any numbness or tingling headache. Musculoskeletal: Patient denies any complaints of joint swelling or deformity. Skin: Negative Psychiatric: Negative Endocrine: No heat or cold intolerance. No recent weight gain. Genitourinary: No dysuria or hematuria. All other 14 point ROS negative except the above Past Medical History Past Medical History: Hypertension, Osteoarthritis (OA), Thyroid Disorder Additional Past Medical History / Comment(s): TIA 4 months agp-no residual e ffects, History of Any Multi-Drug Resistant Organisms: None Reported Past Surgical History: Orthopedic Surgery Additional Past Surgical History / Comment(s): rt carpal tunnel release., left shoulder surgery d/t fx, naima cataracts, Past Anesthesia/Blood Transfusion Reactions: No Reported Reaction Past Psychological History: No Psychological Hx Reported Smoking Status: Never smoker Past Alcohol Use History: Occasional Past Drug Use History: None Reported Additional Drug Use History / Comment(s): CBD oil - Past Family History Father Family Medical History: Cancer Additional Family Medical History / Comment(s): LUNG CANCER Sister(s) Family Medical History: Cancer Additional Family Medical History / Comment(s): OVARIAN CANCER Medications and Allergies Home Medications Medication Instructions Recorded Confirmed Type Echinacea 500 mg PO DAILY 10/07/16 12/20/19 History Hydrochlorothiazide [Hydrodiuril] 25 mg PO DAILY 10/07/16 12/20/19 History Multivitamins, Thera [Multivitamin 1 tab PO DAILY 10/07/16 12/20/19 History (formulary)] [place]-3 Fatty Acids/Fish Oil [Fish 1 cap PO DAILY 10/07/16 12/20/19 History Oil 1,000 mg Softgel] Potassium Chloride ER [K-Dur 10] 20 meq PO DAILY 10/07/16 12/20/19 History Calcium Carbonate/Vitamin D3 1 each PO DAILY 10/09/16 12/20/19 History [Caltrate 600 Plus D3 Tablet] Naproxen Sodium [Aleve] 220 mg PO DAILY PRN 10/09/16 12/20/19 History Aspirin 325 mg PO DAILY 12/16/19 12/20/19 History Cod Liver Oil 1 each PO DAILY 12/16/19 12/20/19 History Levothyroxine(Dose Unknown) 1 tab PO QAM 12/16/19 12/20/19 History Magnesium 250 mg PO DAILY 12/16/19 12/20/19 History Vitamin E 400 unit PO DAILY 12/16/19 12/20/19 History Allergies Allergy/AdvReac Type Severity Reaction Status Date / Time hydrocodone [From [place]] AdvReac Unknown Nausea & Verified 12/20/19 11:23 Vomiting, Very Dry Mouth Physical Exam Vitals: Vital Signs Temp Pulse Pulse Resp BP BP Pulse Ox 12/20/19 16:15 99.0 F 67 16 142/77 99 12/20/19 15:51 63 16 139/67 98 12/20/19 15:39 64 16 143/66 98 12/20/19 15:24 63 16 149/65 97 12/20/19 15:09 96.8 F L 78 16 132/65 97 12/20/19 12:23 65 16 121/66 98 12/20/19 11:31 97.4 F L 88 17 163/80 98 Intake and Output 12/20/19 12/20/19 12/20/19 06:59 14:59 22:59 Intake Total 700 100 Output Total 25 Balance 675 100 Intake: IV 700 100 Output: Estimated Blood Loss 25 Other: Weight 61.6 kg 61.6 kg PHYSICAL EXAMINATION: Patient is lying in the bed comfortably, no acute distress, awake alert and oriented.. HEENT: Normocephalic. Neck is supple. Pupils reactive. Nostrils clear. Oral cavity is moist. Ears reveal no drainage. Neck reveals no JVD, carotid bruits, or thyromegaly. CHEST EXAMINATION: Trachea is central. Symmetrical expansion. Lung daigle clear to auscultation and percussion. CARDIAC: Normal S1, S2 with no gallops. No murmurs ABDOMEN: Soft. Bowel sounds normal. No organomegaly. No abdominal bruits. Extremities: reveal no edema. No clubbing or cyanosis Neurologically awake, alert, oriented x3 with well-coordinated movements. No focal deficits noted Skin: No rash or skin lesions. Psychiatric: Coperative. Nonsuicidal Musculoskeletal: No joint swelling or deformity. Normal range of motion. Right knee surgical site is intact. Assessment and Plan Assessment: Right total knee arthroplasty secondary to severe osteoarthritis Osteoarthritis Hypertension Hypothyroidism History of TIA 4 months ago with no residual effects DVT prophylaxis Plan: Patient will be continued on pain medications, bowel regimen and incentive spirometry. Encourage ambulation. Continue with DVT prophylaxis. We will continue to follow closely and further recommendations based on the clinical course. Thank you for your consult. Time with Patient: Greater than 30
[2019-12-21] MEDS: traMADol 50 MG TAB PO PRN ×2 (04:13→10:57)
[2019-12-21] MEDS: SODIUM CHLORIDE 0.9% 1,000 ML IV SCH (04:50)
[2019-12-21] MEDS: LACTATED RINGERS 1,000 ML IV SCH (05:16)
[2019-12-21 07:28] VITALS: PULSE 72
[2019-12-21 07:30] LABS: Basophils % (A) 0 %; Eosinophils # (A) 0.1 k/uL (0-0.7); Eosinophils % (A) 0 %; HGB 11.9 gm/dL (11.4-16.0); Lymphocytes # (A) 1.8 k/uL (1.0-4.8); Lymphocytes % (A) 12 %; MCHC 33.9 g/dL (31.0-37.0); MCV 91.5 fL (80.0-100.0); Mean Platelet Volume 10.4; Monocytes # (A) 0.8 k/uL (0-1.0); Monocytes % (A) 5 %; Neutrophils # (A) 12.6 k/uL (1.3-7.7); Neutrophils % (A) 81 %; Platelet Count 209 k/uL (150-450); RBC 3.82 m/uL (3.80-5.40); RDW 12.7 % (11.5-15.5); WBC 15.4 k/uL (3.8-10.6)
--- NOTE | 2019-12-21 07:37 | P.PN ---
Progress Note - Text Progress Note Date: 12/21/19 Postoperative day # 1 status post total knee arthroplasty, under spinal anesthesia, and adductor canal catheter placed for postoperative analgesia, currently at ropivacaine 0.2% 8 mL per hour and continuous infusion, patient using oral pain medication for breakthrough pain. Assessment and plan= Acute postoperative pain, adductor canal catheter for pain control, pain is well controlled we'll continue the same management.
[2019-12-21] MEDS: ASPIRIN 325 MG TAB PO SCH (08:43)
--- NOTE | 2019-12-21 08:58 | P.DS ---
Providers Expected date of discharge: 12/21/19 Attending physician: Karl Roca Consults: 12/20/19 10:54 Consult Physician Routine Consulting Provider: Yana Pacheco Consult Reason/Comments: medical management Do you want consulting provider notified?: Yes Primary care physician: Porter Dudley - Discharge Diagnosis(es) (1) Osteoarthritis of right knee Current Visit: Yes Status: Acute (2) Status post total right knee replacement Current Visit: Yes Status: Acute Hospital Course: This is a 79-year-old female with known history of degenerative arthritis of the right knee. The patient presents for evaluation. After discussion and consideration patient elects to proceed with total knee arthroplasty. The patient is seen preoperatively by Dr. Roca and medically cleared for surgery by their primary care physician. Patient is admitted to [facility] on 12/20/2019 for total knee arthroplasty. The procedures performed without complication or sequelae. The patient is doing well postoperatively. Labs and vital signs are stable on day of discharge. On day of discharge patient's knee incision is healing well. There is minimal erythema. There is no drainage noted at this time. There is minimal soft tissue swelling to the knee. Patient has full foot and ankle motion without difficulty or pain. Calf is soft and nontender to palpation. Neurovascular status to the right lower extremity is intact. Patient is discharged home in good condition. Opioid start talking form is reviewed and signed at patient bedside. Please see med rec for accurate list of home medications. Plan - Discharge Summary Discharge Rx Participant: Yes New Discharge Prescriptions: New Aspirin 325 mg PO BID #60 tab Sennosides [Senokot] 2 tab PO DAILY PRN #60 tablet PRN Reason: Constipation traMADol HCl [Ultram] 1 - 2 tab PO Q6H PRN #56 tab PRN Reason: Pain No Action Potassium Chloride ER [K-Dur 10] 20 meq PO DAILY [place]-3 Fatty Acids/Fish Oil [Fish Oil 1,000 mg Softgel] 1 cap PO DAILY Echinacea 500 mg PO DAILY Hydrochlorothiazide [Hydrodiuril] 25 mg PO DAILY Multivitamins, Thera [Multivitamin (formulary)] 1 tab PO DAILY Calcium Carbonate/Vitamin D3 [Caltrate 600 Plus D3 Tablet] 1 each PO DAILY Naproxen Sodium [Aleve] 220 mg PO DAILY PRN PRN Reason: Pain Aspirin 325 mg PO DAILY Cod Liver Oil 1 each PO DAILY Magnesium 250 mg PO DAILY Vitamin E 400 unit PO DAILY Levothyroxine(Dose Unknown) 1 tab PO QAM Discharge Medication List Echinacea 500 mg PO DAILY 10/07/16 [History] Hydrochlorothiazide [Hydrodiuril] 25 mg PO DAILY 10/07/16 [History] Multivitamins, Thera [Multivitamin (formulary)] 1 tab PO DAILY 10/07/16 [History] [place]-3 Fatty Acids/Fish Oil [Fish Oil 1,000 mg Softgel] 1 cap PO DAILY 10/07/16 [History] Potassium Chloride ER [K-Dur 10] 20 meq PO DAILY 10/07/16 [History] Calcium Carbonate/Vitamin D3 [Caltrate 600 Plus D3 Tablet] 1 each PO DAILY 10/09/16 [History] Naproxen Sodium [Aleve] 220 mg PO DAILY PRN 10/09/16 [History] Aspirin 325 mg PO DAILY 12/16/19 [History] Cod Liver Oil 1 each PO DAILY 12/16/19 [History] Levothyroxine(Dose Unknown) 1 tab PO QAM 12/16/19 [History] Magnesium 250 mg PO DAILY 12/16/19 [History] Vitamin E 400 unit PO DAILY 12/16/19 [History] Aspirin 325 mg PO BID #60 tab 12/21/19 [Rx] Sennosides [Senokot] 2 tab PO DAILY PRN #60 tablet 12/21/19 [Rx] traMADol HCl [Ultram] 1 - 2 tab PO Q6H PRN #56 tab 12/21/19 [Rx] Follow up Appointment(s)/Referral(s): Porter Dudley DO [Primary Care Provider] - 1 Week Karl Roca DO [Doctor of Osteopathic Medicine] - 01/03/20 9:45 am (With Gisselle) Ambulatory/Diagnostic Orders: Continuous Passive Motion (CPM) Machine [DME.AMB1] Time Frame: 3 Weeks, Location: None Selected Activity/Diet/Wound Care/Special Instructions: *Please call [facility] once home to arrange delivery of Continuous Passive Motion (CPM) machine: [phone] Weightbearing as tolerated with a walker. CPM 5-6h daily. Leave dressing intact. May be removed by home care nurse or by patient in 10 days. May shower with dressing on. Recommend use of compression stockings daily until follow up to help prevent swelling and blood clots. May remove at night before sleeping. Please follow up with [facility] and call with any questions or concerns, . Discharge Disposition: HOME WITH HOME HEALTH SERVICES
[2019-12-21] MEDS ORDERED: MELOXICAM 7.5 MG TAB PO SCH (09:00)
[2019-12-21 13:50] LABS: Appearance,Urine Clear (Clear); Bilirubin,Urine Negative (Negative); Blood,Urine Negative (Negative); Color,Urine Yellow; Glucose,Urine (UA) Negative (Negative); Ketones,Urine Negative (Negative); Leukocyte Esterase,Urine Negative (Negative); Nitrite,Urine Negative (Negative); Protein,Urine Negative (Negative); Specific Gravity,Urine 1.027 (1.001-1.035); Urobilinogen,Urine <2.0 mg/dL (<2.0)
[2019-12-21 15:50] VITALS: TEMP 97.9
[2019-12-21 16:50] VITALS: BP 137/77
--- NOTE | 2019-12-21 17:22 | PN ---
PROGRESS NOTE DATE OF SERVICE: 12/21/2019 This 79-year-old woman who was admitted with right total knee arthroplasty is improving significantly. No chest pain. No palpitations. White count is elevated. PHYSICAL EXAMINATION: Alert and oriented x3. Pulse is 72, blood pressure 170/77, respiration 18, temperature 98.7, pulse ox 96% on room air. Previous blood pressure was 119/71. HEENT: Conjunctivae normal. NECK: No jugular venous distention. CARDIOVASCULAR SYSTEM: S1, S2 muffled. RESPIRATORY SYSTEM: Breath sounds diminished at the bases. No rhonchi. No crackles. ABDOMEN: Soft, non-tender. LEGS: Status post surgery. NERVOUS SYSTEM: No focal deficit. LABS: WBC 15.4. ASSESSMENT: 1. Right total knee arthroplasty secondary to severe degenerative joint disease. 2. Increased white count, possibly reactive. 3. Degenerative joint disease. 4. Hypertension. 5. Hypothyroidism. 6. History of transient ischemic attack with no residual effects. RECOMMENDATIONS AND DISCUSSION: I recommend to continue current medications, continue symptomatic treatment. I recommend UA with micro. If the UA with micro is normal, patient may be discharged with home medications and with further plans to follow up with the primary physician. Further recommendations per Orthopedic Surgery. Further recommendations to follow. MMODL / IJN: [id number] /
== END 2019-12-21 16:56 | disposition home health service (06) ==
LOC: OR 10:58 → 4SSUR 15:09 → OR 12-21 16:56
PROVIDERS: ATTEND Orthopaedic Surgery
DX: M17.0 Bilateral primary osteoarthritis of knee (principal); I10 Essential (primary) hypertension; E03.9 Hypothyroidism, unspecified; Z86.73 Personal history of transient ischemic attack (TIA), and cerebral infarction without residual deficits; Z88.5 Allergy status to narcotic agent; Z79.82 Long term (current) use of aspirin; Z79.890 Hormone replacement therapy; Z79.899 Other long term (current) drug therapy; Z98.890 Other specified postprocedural states; Z98.41 Cataract extraction status, right eye; Z98.42 Cataract extraction status, left eye; Z80.1 Family history of malignant neoplasm of trachea, bronchus and lung; Z80.41 Family history of malignant neoplasm of ovary
CPT/HCPCS: 97110; 97161; 64448; 76942; 85025; 81003; 73560; 27447; C1713; C1776; J2250; J0171; J1100; J0690 ×3; J2405; J3010; J1885; J2795 ×2; J0735; 88300

== ENCOUNTER → 2019-12-28 | Outpatient (CLI) | payer MEDICARE ==
[2019-12-28 15:45] LABS: Basophils % (A) 0 %; Eosinophils # (A) 0.1 k/uL (0-0.7); Eosinophils % (A) 1 %; HCT 34.3 % (34.0-46.0); HGB 11.5 gm/dL (11.4-16.0); Lymphocytes # (A) 1.5 k/uL (1.0-4.8); Lymphocytes % (A) 18 %; MCH 30.7 pg (25.0-35.0); MCHC 33.5 g/dL (31.0-37.0); MCV 91.6 fL (80.0-100.0); Mean Platelet Volume 9.9; Monocytes # (A) 0.6 k/uL (0-1.0); Monocytes % (A) 7 %; Neutrophils # (A) 5.8 k/uL (1.3-7.7); Neutrophils % (A) 71 %; Platelet Count 318 k/uL (150-450); RBC 3.74 m/uL (3.80-5.40); RDW 13.1 % (11.5-15.5); WBC 8.1 k/uL (3.8-10.6)
[2019-12-29 00:51] LABS: African American GFR (CKD) 96.2 (60.0-200.0); Anion Gap 7.8 mmol/L (4.00-12.00); BUN/Creat Ratio 15.71 Ratio (12.00-20.00); Calcium 9.4 mg/dL (8.7-10.3); Carbon Dioxide 28.2 mmol/L (21.6-31.8); Potassium 4.4 mmol/L (3.5-5.5)
[2019-12-29 00:59] LABS: T4, Free (Free Thyroxine) 1.2 ng/dL (0.80-1.80)
== END ==
LOC: LABWHC1 13:24
PROVIDERS: ATTEND Family Medicine
DX: E03.9 Hypothyroidism, unspecified (principal); D72.829 Elevated white blood cell count, unspecified
CPT/HCPCS: 36415; 80048; 84439; 84443; 85025

== ENCOUNTER → 2020-07-07 | Outpatient (CLI) | payer MEDICARE ==
[2020-07-07 12:10] LABS: Appearance,Urine Clear (Clear); Bilirubin,Urine Negative (Negative); Blood,Urine Negative (Negative); Color,Urine Light Yellow; Glucose,Urine (UA) Negative (Negative); Ketones,Urine Negative (Negative); Leukocyte Esterase,Urine Negative (Negative); Nitrite,Urine Negative (Negative); PH, Urine 5.5 (5.0-8.0); Protein,Urine Trace (Negative); Specific Gravity,Urine 1.014 (1.001-1.035); Urobilinogen,Urine <2.0 mg/dL (<2.0)
[2020-07-07 12:12] LABS: ALT 17 U/L (4-34); AST 25 U/L (14-36); African American GFR (CKD) >90 (>60 ml/min/1.73 sqM); Albumin 4.7 g/dL (3.5-5.0); Alkaline Phosphatase 76 U/L (38-126); Anion Gap 14 mmol/L; Blood Urea Nitrogen 24 mg/dL (7-17); Calcium 9.8 mg/dL (8.4-10.2); Carbon Dioxide 21 mmol/L (22-30); Chloride 102 mmol/L (98-107); Glucose 111 mg/dL (74-99); INR 0.9 (<1.2); Non-African American GFR(CKD) >90 (>60 ml/min/1.73 sqM); Potassium 4.1 mmol/L (3.5-5.1); Prothrombin Time 9.9 sec (9.0-12.0); Sodium 137 mmol/L (137-145); Total Bilirubin 0.5 mg/dL (0.2-1.3); Total Protein 7.6 g/dL (6.3-8.2)
[2020-07-07 12:16] LABS: HCT 39.5 % (34.0-46.0); MCH 29.7 pg (25.0-35.0); MCV 90.1 fL (80.0-100.0); Mean Platelet Volume 10.3; Platelet Count 209 k/uL (150-450); RBC 4.38 m/uL (3.80-5.40); RDW 13.1 % (11.5-15.5); WBC 13.6 k/uL (3.8-10.6)
[2020-07-07 12:30] LABS: Partial Thromboplastin Time 21.5 sec (22.0-30.0)
== END | disposition home or self-care (01) ==
LOC: LABPAT 10:35
PROVIDERS: ATTEND Orthopaedic Surgery
DX: Z01.818 Encounter for other preprocedural examination (principal); M17.12 Unilateral primary osteoarthritis, left knee; Z01.812 Encounter for preprocedural laboratory examination
CPT/HCPCS: 36415; 80053; 81003; 85027; 85610; 85730; 87070

== ENCOUNTER 2020-08-01 05:33 | Day surgery (SDC) | payer MEDICARE ==
[2020-07-21 12:10] VITALS: BMI 23.1
[~2020-08-01 05:33] MED LIST changes: -ACETAMINOPHEN TAB 500 MG TAB PO ONE; +ACETAMINOPHEN TAB 500 MG TAB PO PRN; -DEXAMETHASONE SOD PHOSPHATE 10 MG/ML 1 ML VIAL IV ONE; -GABAPENTIN 300 MG CAP PO ONE; +GABAPENTIN 300 MG CAP PO PRN; -HYDROcodone/APAP 5-325MG 1 EACH TAB PO PRN; -HYDROmorphone 0.5 MG/0.5 ML SYRINGE IVP PRN; -MAGNESIUM HYDROXIDE 2,400 MG/10 ML CUP PO PRN; -MELOXICAM 7.5 MG TAB PO ONE; +MELOXICAM 7.5 MG TAB PO PRN; -MIDAZOLAM 2 MG/2 ML VIAL IV PRN; -NA PHOS,M-B/NA PHOS,DI-BA 133 ML ENEMA RECTAL PRN; -NALOXONE 0.4 MG/ML 1 ML VIAL IV PRN; -ONDANSETRON 4 MG/2 ML VIAL IVP ONE; -ONDANSETRON 4 MG/2 ML VIAL IVP PRN; -ROPIVACAINE 246.25 MG, EPINEPHrine 0.5 MG, KETOROLAC 30 MG, cloNIDine HCL/PF 80 MCG, WA... MISCELLANE ONE; -TRANEXAMIC ACID 1,000 MG in SODIUM CHLORIDE 0.9% 100 ML IVPB ONE; +TRANEXAMIC ACID 1,000 MG in SODIUM CHLORIDE 0.9% 100 ML IVPB PRN; -bisacodyL 10 MG SUPP RECTAL PRN; -fentaNYL (PF) 50 MCG/ML 2 ML AMP IVP PRN; -traMADol 50 MG TAB PO PRN
[2020-08-01] MEDS ORDERED: ONDANSETRON 4 MG/2 ML VIAL IVP ONE (06:00)
[2020-08-01] MEDS ORDERED: DEXAMETHASONE SOD PHOSPHATE 4 MG/ML 1 ML VIAL IV ONE (06:00)
[2020-08-01] MEDS ORDERED: MIDAZOLAM 2 MG/2 ML VIAL IV PRN (06:00)
[2020-08-01] MEDS: LACTATED RINGERS 1,000 ML IV SCH ×2 (06:18→18:53)
[2020-08-01] MEDS ORDERED: MIDAZOLAM 2 MG/2 ML VIAL IV ONE (06:40)
[2020-08-01 06:41] LABS: HCT 38.4 % (34.0-46.0); HGB 13.4 gm/dL (11.4-16.0); MCH 30.6 pg (25.0-35.0); MCHC 34.8 g/dL (31.0-37.0); Mean Platelet Volume 10.1; Platelet Count 214 k/uL (150-450); RBC 4.36 m/uL (3.80-5.40); RDW 13.3 % (11.5-15.5); WBC 5.2 k/uL (3.8-10.6)
[2020-08-01] MEDS ORDERED: PROPOFOL 10 MG/ML 20 ML VIAL IV ONE (06:53)
[2020-08-01] MEDS ORDERED: fentaNYL (PF) 50 MCG/ML 2 ML AMP ONE (06:53)
[2020-08-01] MEDS ORDERED: MIDAZOLAM 2 MG/2 ML VIAL ONE (06:53)
[2020-08-01] MEDS ORDERED: fentaNYL (PF) 50 MCG/ML 2 ML AMP IVP PRN (07:00)
[2020-08-01] MEDS ORDERED: ceFAZolin 3,000 MG in SODIUM CHLORIDE 0.9% IRRIGATIO 3,000 ML IRRIGATION ONE (07:26)
[2020-08-01] MEDS: ROPIVACAINE 246.25 MG, EPINEPHrine 0.5 MG, KETOROLAC 30 MG, cloNIDine HCL/PF 80 MCG, WA... MISCELLANE PRN ×10 (07:26→07:55)
[2020-08-01] MEDS ORDERED: ROPIVACAINE 0.2%-NS ON-Q PUMP 1,090 MG, EMPTY PAIN BALL 1 EACH MISCELLANE PRN (07:48)
--- NOTE | 2020-08-01 07:48 | P.ANPRN ---
Procedure Note - Anesthesia - Nerve Block Performed Left Adductor Canal Infusion Time Out Performed: Yes (640) Date of Procedure: 08/01/20 Procedure Start Time: 06:41 Procedure Stop Time: 06:48 Location of Patient: PreOp Indication: Acute Post-Operative Pain, Requested by Surgeon Specifically requested for management of pain by DrEric: Karl Roca Preparation: Sterile Prep Position: Supine Catheter Depth at Skin (cm): 7 Catheter: Indwelling Needle Types: Pajunk Needle Gauge: 21 Ultrasound used to visualize needle placement: Yes Ultrasound used to observe medication spread: Yes Injectate: 0.5% Ropivacaine (see comment for volume) (20cc) Blood Aspirated: No Pain Paresthesia on Injection Noted: No Resistance on Injection: Normal Image Stored and Saved: Yes Events: Uneventful and Well Tolerated
--- NOTE | 2020-08-01 08:31 | P.OP ---
Date of Procedure: 08/01/20 Preoperative Diagnosis: Severe osteoarthritis left knee Postoperative Diagnosis: Severe osteoarthritis left knee Procedure(s) Performed: Left total knee arthroplasty Implants: H[employer] Nephew Journey II CR Oxinium cruciate retaining femoral component size 5, left [employer] Journey nonporous tibial baseplate size 4, left H[employer] Journey II, XLPE Deep Dished articular insert, size 11 mm, Size 3-4, left [employer] Journey Eve II resurfacing patellar component, oval, 29 mm All components were cemented using Palacos R bone cement The articulation is Oxinium on polyethylene Anesthesia: spinal Surgeon: Karl Roca Retail Asset Protection Specialist #1: Gisselle Oconnor Estimated Blood Loss (ml): 25 Pathology: other (Bone and cartilage) Condition: stable Disposition: PACU Indications for Procedure: After failure of conservative treatment we discussed the surgical and nonsurgical treatment options at length. Patient wishes to proceed with a total knee arthroplasty. Complications specific to this procedure were discussed at length, including but not limited to infection, bleeding, stiffness, and nerve injury. Covid-19 was also discussed at length with the patient, and they are aware of the current policies and procedures. The patient was given the option of delaying surgery, but they elect to proceed knowing these risks. Patient is aware of all these complications and informed consent was obtained Operative Findings: The operative findings are consistent with severe osteoarthritis of the left knee Description of Procedure: Patient was seen in the preoperative area and the consent was reviewed and the operative site was marked with a skin marker. The patient verified the procedure and the operative site. An adductor canal pain catheter was placed by anesthesia in the preoperative area. The patient was then brought to the operating room and given preoperative antibiotics intravenously. A gram of transexamic acid was given intravenously. A spinal anesthetic was administered by the anesthesia department. A tourniquet was placed on the upper thigh and the lower extremity was prepped with chlorhexidine and draped in usual sterile fashion. A universal timeout was then performed which confirmed the patient's name, surgical site, ALLERGIES, and consent. The lower extremity was then exsanguinated and tourniquet was inflated to 250 mmHg. A standard anterior midline approach to the knee was performed. The skin and subcutaneous tissue were sharply dissected down to the patellar tendon. A medial parapatellar arthrotomy was then performed. The knee was then extended, the patellar was everted, and the knee was again flexed. The infra-patellar fat pad was removed in order to enhance exposure. The anterior horns of both menisci were excised, and a release was performed to the posterior medial aspect of the knee. On gross visual inspection, there was complete loss of articular cartilage in the medial and patellofemoral joint spaces. There was also significant cartilage damage in the lateral compartment. There were multiple periarticular osteophytes globally about the knee which were then removed with a Ronguer. The femoral canal was then opened with the 9.5 mm intramedullary drill. The 8 mm intramedullary sabine was then inserted into the femoral canal with the distal femoral cutting guide set for 5 of valgus. The distal femoral cutting block was then pinned in place. The intramedullary sabine was then removed, and the distal femur was then cut. The cutting block was then removed and the cut was checked for symmetry. The resected bone was then measured to confirm the appropriate distal femoral resection. Next, the sizing guide was then placed and set for 3 external rotation based off of the epicondylar axis and Whitesides line. Pins were then placed and the drill holes, and the femur was sized with the sizing stylus. The pins were then removed, and the sizing guide was then removed. The spikes of the femoral block was then placed into the predrilled holes, and malleted into place. Two 45 mm pins were then placed into the fixation holes on the cutting block. An jaylon wing was then used to ensure there would be no notching with the anterior cut. The anterior condyles were cut without notching. The anterior chord cut was then performed, followed by the posterior cut, posterior chamfer cut, and the anterior chamfer cut. The collateral ligaments were protected during the entire process. The cutting block was then removed. Any remaining bone and osteophytes were removed from the femur with a Rominger. The femoral canal was plugged with autologous bone. Attention was then directed to the tibia. The remaining ACL was removed with a Ronguer, and the tibia was then gently subluxed forward with a large bent knee retractor. Any remaining menisci were excised. The posterior lateral corner was cauterized in order to coagulate the lateral geniculate artery. The extra medullary tibial cutting guide was then placed, set for the appropriate rotation, slope, and depth of resection. The proximal tibia cutting guide was then pinned in place. Proximal tibia was then cut and sized. The femoral trial was placed. A narrow saw blade was then used to remove the anterior intracondylar femoral bone. The CR notch trial was then placed. The tibial trial was placed with the appropriate-sized insert. The knee was able to fully extend and flex to 130 and was stable throughout all range of motion. The knee was then extended and the patella was everted. Patella was then measured, and then using an osteotomy guide, the patella was cut at the appropriate level. The patella was then measured and drilled and the patella trial was then placed. The knee was then taken through range of motion with the patella trial and the patella tracked normally using the no thumbs technique.. The knee was then extended patella trial was then removed and the patella was everted. Knee was then flexed and lug holes were drilled through the femoral trial and the femoral trial was then removed. The tibial was then re-exposed, and the tibial broach guide was then pinned in place after it was set for the appropriate rotation to allow for the most coverage without overhang. The tibia was then reamed and broached. The cut surfaces of bone were then irrigated with pulsatile lavage. The posterior structures were injected with the ropivacaine solution. The knee was also irrigated with Irrisept solution. The components were then opened, the cement was mixed, and the components were then cemented in place. The cement was allowed to harden with the knee in full extension. While the cement was hardening, the remaining soft tissues were then injected with a ropivacaine so lution, which consisted of 246.25 mg of ropivacaine, 0.5 mg of epinephrine, 30 mg of Toradol, 80 g of clonidine, and 48.45 mL of sterile water, for a total of 100 mL of fluid injected. After the cemented hardened. The tourniquet was released, and hemostasis was obtained. A second gram of transexamic acid was given intravenously. The knee was again irrigated. The knee was again taken through range of motion and found to be stable throughout all range of motion of 0-130, and the patella tracked normally. The fascia was then closed with 0 Vicryl followed by #2 strata fix suture. The subcutaneous tissue was closed with 3-0 Vicryl and 3-0 strata fix. Exofin glue was used for the skin and placed with the knee in flexion. After the glue had dried, and Optafoam silver impregnated dressing was applied. The patient was then transferred to recovery room in stable condition. The events assistant ROGELIO Garza was required due the complexity surgery and the need for a skilled medical or surgical instrument maker. She assisted in positioning, draping, retraction, and closure of the wound.
[2020-08-01] MEDS ORDERED: MAGNESIUM HYDROXIDE 2,400 MG/10 ML CUP PO PRN (08:39)
[2020-08-01] MEDS ORDERED: HYDROmorphone 0.5 MG/0.5 ML SYRINGE IVP PRN (08:39)
[2020-08-01] MEDS ORDERED: NALOXONE 0.4 MG/ML 1 ML VIAL IV PRN (08:39)
[2020-08-01] MEDS ORDERED: NA PHOS,M-B/NA PHOS,DI-BA 133 ML ENEMA RECTAL PRN (08:39)
[2020-08-01] MEDS ORDERED: bisacodyL 10 MG SUPP RECTAL PRN (08:39)
[2020-08-01] MEDS ORDERED: HYDROmorphone 0.2 MG/1 ML SYRINGE IVP PRN (08:39)
[2020-08-01] MEDS ORDERED: HYDROcodone/APAP 5-325MG 1 EACH TAB PO PRN ×2 (08:39)
[2020-08-01] MEDS ORDERED: ONDANSETRON 4 MG/2 ML VIAL IVP PRN (08:39)
[2020-08-01] MEDS ORDERED: LACTATED RINGERS 1,000 ML IV ONE (08:56)
--- NOTE | 2020-08-01 09:06 | XR ---
EXAMINATION TYPE: XR knee limited LT DATE OF EXAM: 08/01/2020 COMPARISON: NONE HISTORY: 79-year-old female evaluation for postoperative abnormality in alignment TECHNIQUE: 2 views FINDINGS: Images show placement of left total knee arthroplasty. Multiple distal femoral and proximal tibial co mponents of the prosthesis appear well seated without periprosthetic fracture. Alignment grossly kelly omic. Anterior soft tissue swelling with scattered soft tissue air as well as intra-articular air rel ating to recent operation. IMPRESSION: Uncomplicated postoperative appearance left total knee arthroplasty.
[2020-08-01] MEDS: ASPIRIN 325 MG TAB PO SCH ×2 (10:17→20:31)
[2020-08-01] MEDS: MELOXICAM 7.5 MG TAB PO SCH (10:18)
--- NOTE | 2020-08-01 14:00 | P.CONS ---
History of Present Illness - History of Present Illness This is a pleasant 79 years old female with past medical history of CVA/TIA, hypertension, memory impairment, osteoarthritis and hypothyroidism. sHe was admitted for severe osteoarthritis of the left knee undergoing elective left total knee arthroplasty today is postoperative day #0. Consult has been requested for routine medical management. Patient denies specific complaints, no chest pain or dyspnea. No abdominal pain, no diarrhea. No dysuria. No fever vitals looks stable. CBC showed normal WBC, hemoglobin and platelet count. Review of Systems CONSTITUTIONAL: No fever, no malaise, no fatigue. HEENT: No recent visual problems or hearing problems. Denied any sore throat. CARDIOVASCULAR: No orthopnea, PND, no palpitations, no syncope. PULMONARY: No shortness of breath, no cough, no hemoptysis. GASTROINTESTINAL: No diarrhea, no nausea, no vomiting, no abdominal pain. Normoactive bowel sounds. NEUROLOGICAL: No headaches, no weakness, no numbness. HEMATOLOGICAL: Denies any bleeding or petechiae. GENITOURINARY: Denies any burning micturition, frequency, or urgency. MUSCULOSKELETAL/RHEUMATOLOGICAL: Denies any joint pain, swelling, or any muscle pain. ENDOCRINE: Denies any polyuria or polydipsia. Past Medical History Past Medical History: CVA/TIA, Hypertension, Memory Impairment, Osteoarthritis (OA), Thyroid Disorder Additional Past Medical History / Comment(s): hx. TIA few years ago-no residual effects History of Any Multi-Drug Resistant Organisms: None Reported Past Surgical History: Joint Replacement, Orthopedic Surgery Additional Past Surgical History / Comment(s): carpal tunnel release X 1, ORIF left prox. humerus fx., right knee replaced 2020 Past Anesthesia/Blood Transfusion Reactions: No Reported Reaction Smoking Status: Never smoker - Past Family History Father Family Medical History: Cancer Additional Family Medical History / Comment(s): LUNG CANCER Sister(s) Family Medical History: Cancer Additional Family Medical History / Comment(s): OVARIAN CANCER Medications and Allergies Home Medications Medication Instructions Recorded Confirmed Type Echinacea 500 mg PO DAILY 10/07/16 08/01/20 History Multivitamins, Thera [Multivitamin 1 tab PO DAILY 10/07/16 08/01/20 History (formulary)] Barnard-3 Fatty Acids/Fish Oil [Fish 1 cap PO DAILY 10/07/16 08/01/20 History Oil 1,000 mg Softgel] Potassium Chloride ER [K-Dur 10] 20 meq PO DAILY 10/07/16 08/01/20 History hydroCHLOROthiazide [Hydrodiuril] 25 mg PO DAILY 10/07/16 08/01/20 History Calcium Carbonate/Vitamin D3 1 each PO DAILY 10/09/16 08/01/20 History [Caltrate 600 Plus D3 Tablet] Aspirin 325 mg PO DAILY 12/16/19 08/01/20 History Cod Liver Oil 1 each PO DAILY 12/16/19 08/01/20 History Levothyroxine Sodium [Synthroid] 75 mcg PO DAILY 12/16/19 08/01/20 History Magnesium 250 mg PO DAILY 12/16/19 08/01/20 History Vitamin E 400 unit PO DAILY 12/16/19 08/01/20 History Sennosides [Senokot] 2 tab PO DAILY PRN #60 tablet 12/21/19 08/01/20 Rx Allergies Allergy/AdvReac Type Severity Reaction Status Date / Time hydrocodone [From [place]] AdvReac Unknown Nausea & Verified 08/01/20 06:01 Vomiting, Very Dry Mouth Physical Exam Vitals: Vital Signs Temp Pulse Pulse Resp BP Pulse Ox 08/01/20 13:39 98.3 F 80 18 170/77 96 08/01/20 12:00 76 127/70 08/01/20 11:32 100 08/01/20 11:30 85 128/73 08/01/20 11:00 78 146/74 08/01/20 10:45 78 133/75 08/01/20 10:30 79 144/70 08/01/20 10:15 74 131/75 08/01/20 10:00 97.7 F 77 17 144/70 96 08/01/20 09:45 73 16 112/51 97 08/01/20 09:30 74 16 120/57 97 08/01/20 09:15 80 16 136/63 97 08/01/20 09:00 74 12 139/63 97 08/01/20 08:45 78 12 146/59 97 08/01/20 08:33 97.2 F L 81 12 161/74 97 08/01/20 06:52 75 16 129/70 99 08/01/20 06:00 98.0 F 82 16 160/79 98 Intake and Output 07/31/20 08/01/20 08/01/20 22:59 06:59 14:59 Intake Total 650 151 Output Total 25 Balance 650 126 Intake: IV 650 151 Output: Estimated Blood Loss 25 Other: Weight 62.5 kg 62.5 kg GENERAL: The patient is alert and oriented x3, not in any acute distress. Well developed, well nourished. HEENT: Pupils are round and equally reacting to light. EOMI. No scleral icterus. No conjunctival pallor. Normocephalic, atraumatic. No pharyngeal erythema. No thyromegaly. CARDIOVASCULAR: S1 and S2 present. No murmurs, rubs, or gallops. PULMONARY: Chest is clear to auscultation, no wheezing or crackles. ABDOMEN: Soft, nontender, nondistended, normoactive bowel sounds. No palpable organomegaly. MUSCULOSKELETAL: No joint swelling or deformity. -EXTREMITIES: No cyanosis, clubbing, or pedal edema. Left knee is in a dressing, rest of examination is deferred to the surgical team NEUROLOGICAL: Gross neurological examination did not reveal any focal deficits. SKIN: No rashes. No petechiae Results CBC & Chem 7: 08/01/20 06:25 Assessment and Plan Assessment: Severe left knee osteoarthritis, status post left total knee arthroplasty Hypertension Hypothyroidism History of CVA/TIA History of memory Plan: This is a pleasant 79 years old female who presents for elective left knee arthr oplasty. Continue with postop care. Continue with pain management and DVT prophylaxis as per primary team. Labs and medication were reviewed.. Continue same treatment. Continue with symptomatic treatment. Resume home medication. Monitor lytes and vitals. DVT and GI prophylaxis. Further recommendations depends on the clinical course of the patient We recommend patient follow up with her PCP in one week and patient was instructed to the same Thank you for consulting us
[2020-08-01] MEDS: SODIUM CHLORIDE 0.9% 1,000 ML IV SCH (14:44)
[2020-08-01] MEDS: SENNOSIDES-DOCUSATE SODIUM 1 EACH TAB PO SCH (20:31)
[2020-08-01] MEDS: traMADol 50 MG TAB PO PRN (21:11)
[2020-08-02] MEDS: SODIUM CHLORIDE 0.9% 1,000 ML IV SCH ×2 (01:21→17:04)
[2020-08-02] MEDS: HYDROmorphone 0.5 MG/0.5 ML SYRINGE IVP PRN ×5 (02:00→21:42)
--- NOTE | 2020-08-02 07:04 | P.PN ---
Progress Note - Text Progress Note Date: 08/02/20 Postoperative day # 1 status post total knee arthroplast, and adductor canal catheter placed for postoperative analgesia, currently at ropivacaine 0.2% 8 mL per hour continuous infusion, visual analogue scale is 4/10, patient using oral pain medication for breakthrough pain. Assessment and plan= Acute postoperative pain, adductor canal catheter for pain control, pain is well controlled we'll continue the same management.
[2020-08-02] MEDS: ASPIRIN 325 MG TAB PO SCH ×2 (07:24→21:43)
[2020-08-02] MEDS: MELOXICAM 7.5 MG TAB PO SCH (07:24)
[2020-08-02] MEDS: traMADol 50 MG TAB PO PRN ×2 (07:24→13:45)
[2020-08-02] MEDS ORDERED: HYDROcodone/APAP 7.5-325MG 1 EACH TAB PO PRN ×2 (08:08)
--- NOTE | 2020-08-02 08:14 | P.DS ---
Providers Expected date of discharge: 08/02/20 Attending physician: Karl Roca Consults: 08/01/20 08:39 Consult Physician Routine Consulting Provider: Yana Pacheco Consult Reason/Comments: medical management Do you want consulting provider notified?: Yes Primary care physician: Stated None - Discharge Diagnosis(es) (1) Osteoarthritis of left knee Current Visit: Yes Status: Acute (2) S/P total knee arthroplasty Current Visit: Yes Status: Acute Hospital Course: This is a 79-year-old female with known history of degenerative arthritis of the left knee. The patient presented for evaluation as an outpatient. After discussion and consideration patient elects to proceed with total knee arthroplasty. The patient is seen preoperatively by Dr. Roca and medically cleared for surgery by their primary care physician. Patient is admitted to [facility] on 08/01/2020 for total knee arthroplasty. The procedure is performed without complication or sequelae. The patient is doing well postoperatively. Labs and vital signs are stable on day of discharge. On day of discharge patient's knee incision is healing well. There is minimal erythema. There is no drainage noted at this time. There is minimal soft tissue swelling to the knee. Patient has full foot and ankle motion without difficulty or pain. Calf is soft and nontender to palpation. Neurovascular status to the left lower extremity is intact. Patient is discharged home except he felt in good condition. Opioid start talking form is reviewed and signed. Please see med rec for accurate list of home medications. Plan - Discharge Summary Discharge Rx Participant: Yes New Discharge Prescriptions: New Aspirin 325 mg PO BID #60 tab HYDROcodone/APAP 7.5-325MG [[place] 7.5-325] 1 - 2 tab PO Q6H PRN #32 tab PRN Reason: Pain Sennosides [Senokot] 2 tab PO DAILY PRN #60 tablet PRN Reason: Constipation No Action Potassium Chloride ER [K-Dur 10] 20 meq PO DAILY Erin-3 Fatty Acids/Fish Oil [Fish Oil 1,000 mg Softgel] 1 cap PO DAILY Echinacea 500 mg PO DAILY hydroCHLOROthiazide [Hydrodiuril] 25 mg PO DAILY Multivitamins, Thera [Multivitamin (formulary)] 1 tab PO DAILY Calcium Carbonate/Vitamin D3 [Caltrate 600 Plus D3 Tablet] 1 each PO DAILY Aspirin 325 mg PO DAILY Cod Liver Oil 1 each PO DAILY Magnesium 250 mg PO DAILY Vitamin E 400 unit PO DAILY Levothyroxine Sodium [Synthroid] 75 mcg PO DAILY Sennosides [Senokot] 2 tab PO DAILY PRN #60 tablet PRN Reason: Constipation Discharge Medication List Echinacea 500 mg PO DAILY 10/07/16 [History] Multivitamins, Thera [Multivitamin (formulary)] 1 tab PO DAILY 10/07/16 [History] Erin-3 Fatty Acids/Fish Oil [Fish Oil 1,000 mg Softgel] 1 cap PO DAILY 10/07/16 [History] Potassium Chloride ER [K-Dur 10] 20 meq PO DAILY 10/07/16 [History] hydroCHLOROthiazide [Hydrodiuril] 25 mg PO DAILY 10/07/16 [History] Calcium Carbonate/Vitamin D3 [Caltrate 600 Plus D3 Tablet] 1 each PO DAILY 10/09/16 [History] Aspirin 325 mg PO DAILY 12/16/19 [History] Cod Liver Oil 1 each PO DAILY 12/16/19 [History] Levothyroxine Sodium [Synthroid] 75 mcg PO DAILY 12/16/19 [History] Magnesium 250 mg PO DAILY 12/16/19 [History] Vitamin E 400 unit PO DAILY 12/16/19 [History] Sennosides [Senokot] 2 tab PO DAILY PRN #60 tablet 12/21/19 [Rx] Aspirin 325 mg PO BID #60 tab 08/02/20 [Rx] HYDROcodone/APAP 7.5-325MG [[place] 7.5-325] 1 - 2 tab PO Q6H PRN #32 tab 08/02/20 [Rx] Sennosides [Senokot] 2 tab PO DAILY PRN #60 tablet 08/02/20 [Rx] Follow up Appointment(s)/Referral(s): [facility], [NON-STAFF] - As Needed Karl Roca DO [Doctor of Osteopathic Medicine] - 2 Weeks Activity/Diet/Wound Care/Special Instructions: Weightbearing as tolerated with a walker. CPM 5-6h daily as tolerated. Leave dressing intact. May be removed by home care nurse or by patient in 10 days. May shower with dressing on. Recommend use of compression stockings daily until follow up to help prevent swelling and blood clots. May remove at night before sleeping. Please take aspirin 325mg twice daily for 30 days to prevent blood clots. Please follow up with [facility] and call with any questions or concerns, . Discharge Disposition: HOME WITH HOME HEALTH SERVICES
[2020-08-02] MEDS ORDERED: traMADol 50 MG TAB PO PRN (09:49)
[2020-08-02 11:47] LABS: Basophils # (A) 0.02 X 10*3/uL (0.00-0.10); Basophils % (A) 0.3 %; Eosinophils # (A) 0.05 X 10*3/uL (0.04-0.35); Eosinophils % (A) 0.6 %; HCT 30.9 % (37.2-46.3); HGB 10.1 g/dL (12.0-15.0); Lymphocytes # (A) 0.97 X 10*3/uL (0.90-5.00); Lymphocytes % (A) 12.3 %; MCH 29.6 pg (27.0-32.0); MCHC 32.7 g/dL (32.0-37.0); MCV 90.6 fL (80.0-97.0); Mean Platelet Volume 13.2 fL (9.5-12.2); Monocytes # (A) 0.85 X 10*3/uL (0.20-1.00); Monocytes % (A) 10.8 %; Neutrophils # (A) 5.94 X 10*3/uL (1.80-7.70); Neutrophils % (A) 75.5 %; Platelet Count 191 X 10*3/uL (140-440); RBC 3.41 X 10*6/uL (4.10-5.20); RDW 13.2 % (11.5-14.5); WBC 7.87 X 10*3/uL (4.50-10.00)
--- NOTE | 2020-08-02 11:58 | P.PN ---
Subjective This is a pleasant 79 years old female with past medical history of CVA/TIA, hypertension, memory impairment, osteoarthritis and hypothyroidism. sHe was admitted for severe osteoarthritis of the left knee undergoing elective left total knee arthroplasty today is postoperative day #0. Consult has been requested for routine medical management. Patient denies specific complaints, no chest pain or dyspnea. No abdominal pain, no diarrhea. No dysuria. No fever vitals looks stable. CBC showed normal WBC, hemoglobin and platelet count. 08/02/2020 Patient was comfortable with no complaint. No chest pain or abdominal pain. No nausea vomiting. No change in urine or bowel habits. No fever. She did not have bowel movement but she is passing gas. Her pain at the surgery site is minimal in her left knee. Tremors or normal sinus 75 mL/h per primary team. Also she is on aspirin 325 mg twice daily. CBC showed mild anemia with hemoglobin 10.1 probably from surgical blood loss but vitals stable. Physical therapy on board Objective - Vital Signs Vital signs: Vital Signs Temp 98.8 F 08/02/20 07:00 Pulse 83 08/02/20 07:00 Resp 16 08/02/20 07:30 BP 118/64 08/02/20 07:00 Pulse Ox 92 L 08/02/20 07:00 Intake & Output 08/01/20 08/02/20 08/02/20 18:59 06:59 18:59 Intake Total 151 200 Output Total 25 Balance 126 200 Weight 62.5 kg Intake: IV 151 Oral 200 Output: Estimated Blood Loss 25 Other: Voiding Method Toilet Toilet # Voids 2 1 - Exam GENERAL: The patient is alert and oriented x3, not in any acute distress. Well developed, well nourished. HEENT: Pupils are round and equally reacting to light. EOMI. No scleral icterus. No conjunctival pallor. Normocephalic, atraumatic. No pharyngeal erythema. No thyromegaly. CARDIOVASCULAR: S1 and S2 present. No murmurs, rubs, or gallops. PULMONARY: Chest is clear to auscultation, no wheezing or crackles. ABDOMEN: Soft, nontender, nondistended, normoactive bowel sounds. No palpable organomegaly. MUSCULOSKELETAL: No joint swelling or deformity. -EXTREMITIES: No cyanosis, clubbing, or pedal edema. Left knee is in a dressing, rest of examination is deferred to the surgical team NEUROLOGICAL: Gross neurological examination did not reveal any focal deficits. SKIN: No rashes. No petechiae - Labs CBC & Chem 7: 08/02/20 08:01 Labs: Abnormal Lab Results - Last 24 Hours (Table) 08/02/20 Range/Units 08:01 RBC 3.41 L (4.10-5.20) X 10*6/uL Hgb 10.1 L (12.0-15.0) g/dL Hct 30.9 L (37.2-46.3) % MPV 13.2 H (9.5-12.2) fL Assessment and Plan Assessment: Severe left knee osteoarthritis, status post left total knee arthroplasty Hypertension Hypothyroidism History of CVA/TIA History of memory Plan: This is a pleasant 79 years old female who presents for elective left knee arthroplasty. Continue with postop care. Continue with pain management and DVT prophylaxis as per primary team. Labs and medication were reviewed.. Continue same treatment. Continue with symptomatic treatment. Resume home medication. Monitor lytes and vitals. DVT and GI prophylaxis. Further recommendations depends on the clinical course of the patient We recommend patient follow up with her PCP in one week and patient was instructed to the same Thank you for consulting us
[2020-08-02] MEDS: KETOROLAC 15 MG/ML 1 ML VIAL IVP PRN (13:43)
[2020-08-02] MEDS: LACTATED RINGERS 1,000 ML IV SCH (14:56)
[2020-08-02] MEDS: SENNOSIDES-DOCUSATE SODIUM 1 EACH TAB PO SCH (21:43)
[2020-08-03] MEDS: KETOROLAC 15 MG/ML 1 ML VIAL IVP PRN (03:40)
[2020-08-03] MEDS: ASPIRIN 325 MG TAB PO SCH (08:26)
[2020-08-03] MEDS: traMADol 50 MG TAB PO PRN (08:30)
[2020-08-03 09:15] VITALS: BP 158/83; PULSE 98; RESP 16; TEMP 98.2
--- NOTE | 2020-08-03 13:26 | P.PN ---
Subjective This is a pleasant 79 years old female with past medical history of CVA/TIA, hypertension, memory impairment, osteoarthritis and hypothyroidism. sHe was admitted for severe osteoarthritis of the left knee undergoing elective left total knee arthroplasty today is postoperative day #0. Consult has been requested for routine medical management. Patient denies specific complaints, no chest pain or dyspnea. No abdominal pain, no diarrhea. No dysuria. No fever vitals looks stable. CBC showed normal WBC, hemoglobin and platelet count. 08/02/2020 Patient was comfortable with no complaint. No chest pain or abdominal pain. No nausea vomiting. No change in urine or bowel habits. No fever. She did not have bowel movement but she is passing gas. Her pain at the surgery site is minimal in her left knee. Tremors or normal sinus 75 mL/h per primary team. Also she is on aspirin 325 mg twice daily. CBC showed mild anemia with hemoglobin 10.1 probably from surgical blood loss but vitals stable. Physical therapy on board 08/03/2020 Patient is lying in bed comfortable with no distress. No chest pain or dyspnea. No abdominal pain. She did not have bowel movement. And she passed a little gas. She has some mild pain at the left knee surgical site which is expected. Hemodynamically stable. She has mild anemia with hemoglobin 10.1 probably from surgery Physical therapy evaluated the patient Objective - Vital Signs Vital signs: Vital Signs Temp 98.2 F 08/03/20 07:00 Pulse 98 08/03/20 08:26 Resp 16 08/03/20 08:26 BP 158/83 08/03/20 07:00 Pulse Ox 94 L 08/03/20 07:30 Intake & Output 08/02/20 08/03/20 08/03/20 18:59 06:59 18:59 Intake Total 540 Balance 540 Intake: Oral 540 Other: Voiding Method Toilet Toilet # Voids 3 2 - Exam GENERAL: The patient is alert and oriented x3, not in any acute distress. Well developed, well nourished. HEENT: Pupils are round and equally reacting to light. EOMI. No scleral icterus. No conjunctival pallor. Normocephalic, atraumatic. No pharyngeal erythema. No thyromegaly. CARDIOVASCULAR: S1 and S2 present. No murmurs, rubs, or gallops. PULMONARY: Chest is clear to auscultation, no wheezing or crackles. ABDOMEN: Soft, nontender, nondistended, normoactive bowel sounds. No palpable organomegaly. MUSCULOSKELETAL: No joint swelling or deformity. -EXTREMITIES: No cyanosis, clubbing, or pedal edema. Left knee is in a dress ing, rest of examination is deferred to the surgical team NEUROLOGICAL: Gross neurological examination did not reveal any focal deficits. SKIN: No rashes. No petechiae - Labs CBC & Chem 7: 08/02/20 08:01 Assessment and Plan Assessment: Severe left knee osteoarthritis, status post left total knee arthroplasty Hypertension Hypothyroidism History of CVA/TIA History of memory Plan: This is a pleasant 79 years old female who presents for elective left knee arthroplasty. Continue with postop care. Continue with pain management and DVT prophylaxis as per primary team. Labs and medication were reviewed.. Continue same treatment. Continue with symptomatic treatment. Resume home medication. Monitor lytes and vitals. DVT and GI prophylaxis. Further recommendations depends on the clinical course of the patient We recommend patient follow up with her PCP in one week and patient was instructed to the same Thank you for consulting us
== END 2020-08-03 13:35 | disposition home health service (06) ==
LOC: OR 05:33 → 4SSUR 08:24 → OR 08-03 13:35
PROVIDERS: ATTEND Orthopaedic Surgery
DX: M17.12 Unilateral primary osteoarthritis, left knee (principal); M25.762 Osteophyte, left knee; D64.9 Anemia, unspecified; I10 Essential (primary) hypertension; E03.9 Hypothyroidism, unspecified; E78.5 Hyperlipidemia, unspecified; Z86.73 Personal history of transient ischemic attack (TIA), and cerebral infarction without residual deficits; Z96.651 Presence of right artificial knee joint; Z98.890 Other specified postprocedural states; Z87.891 Personal history of nicotine dependence; R41.3 Other amnesia; Z80.1 Family history of malignant neoplasm of trachea, bronchus and lung; Z80.41 Family history of malignant neoplasm of ovary; Z79.82 Long term (current) use of aspirin; Z79.890 Hormone replacement therapy; Z79.891 Long term (current) use of opiate analgesic; Z79.899 Other long term (current) drug therapy; Z88.5 Allergy status to narcotic agent
CPT/HCPCS: 27447; 94760 ×2; 97116; 97110; 97161; 64448; 76942; 85025; 85027; 88300; 73560; C1713; C1776; J2250; J0171; J1100; J0690 ×2; J2405 ×2; J3010; J1885 ×3; J2795 ×2; J2704; J0735; J1170 ×2

== ENCOUNTER → 2023-03-19 | Outpatient (CLI) | payer MEDICARE ==
--- NOTE | 2023-03-25 16:59 | MR ---
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 COMPARISON: MRI brain 12/17/2022 and 12/16/2022. TECHNIQUE: Multi planar, multi sequence imaging was performed through the brain including: T1, T2, In version recovery, susceptibility weighted imaging and gradient echo imaging and Diffusion weighted im aging. The patient was then given intravenous contrast and multi planar, T1 fat-saturation images wer e obtained. IV Contrast: 5.5 cc Gadobutrol FINDINGS: Postsurgical changes of a left occipital lobe. The surgical margin demonstrates somewhat diffuse enha ncement which is new from prior and extends superiorly along the posterior dura/falx cerebra and into the left temporal lobe. Of the dural metastatic foci not entirely excluded given some enhancement wh ich is somewhat diffuse around the dura. This also goes into the corpus callosum splenium and extends across midline which is new from prior. There is extensive vasogenic edema within the left occipital left temporal lobes as well as the corpus callosum. There is fluid collection over the convexity of the left cerebrum and anteriorly along the right cere addis with high FLAIR signal suggestive of blood products. Which have decreased in size from prior. Th ere may be some postcontrast enhancement anteriorly series 801 image 124, series 803 image 44. Additi onal ill-defined enhancement The bone marrow signal is within normal limits. Paranasal sinuses and mastoid air cells: No significant paranasal sinus disease. Visualized orbits: Orbital contents are intact. IMPRESSION: Progression of disease with abnormal enhancement within the corpus callosum and extending along the t emporal lobe as well superiorly along the occipital lobe. Additional areas on the contralateral side along the dura of the right parietal lobe and anteriorly near the falx.
== END | disposition home or self-care (01) ==
LOC: RADMRIMAIN 21:45
PROVIDERS: ATTEND Radiology Radiation Oncology
DX: C71.4 Malignant neoplasm of occipital lobe (principal); G93.9 Disorder of brain, unspecified
CPT/HCPCS: 70553; A9585